=== PATIENT | female | born 1950 | race Caucasian/White ===

== ENCOUNTER 2017-07-01 00:28 | Inpatient (IN) ==
--- NOTE | 2017-07-01 03:24 | Internal Med History&Physical ---
Date of Encounter: 07/01/17 Time of Encounter: 03:16 Assessment and Plan (1) Hyperglycemia due to type 2 diabetes mellitus Current visit: Yes Status: Acute patient diabetes not controlled, positive ketone, required insulin drip will place DKA protocol. Qualifiers: Diabetes mellitus exterminator termite insulin use: unspecified exterminator termite insulin use status Qualified Code(s): E11.65 - Type 2 diabetes mellitus with hyperglycemia (2) Upper gastrointestinal bleed Current visit: No Status: Acute Acute about a positive from emesis, CT shows esophagitis, colitis, will give PPI twice a day consult the GI (3) CKD (chronic kidney disease) stage 3, GFR 30-59 ml/min Current visit: No Status: Chronic (4) GERD (gastroesophageal reflux disease) Current visit: Yes Status: Chronic Continue PPI Qualifiers: Esophagitis presence: with esophagitis Qualified Code(s): K21.0 - Gastro- esophageal reflux disease with esophagitis (5) Hypertension Current visit: No Status: Chronic Qualifiers: Hypertension type: essential hypertension Qualified Code(s): I10 - Essential (primary) hypertension (6) UTI (urinary tract infection) Current visit: No Status: Resolved Continue ceftriaxone pending culture Qualifiers: Urinary tract infection type: acute cystitis Hematuria presence: without hematuria Qualified Code(s): N30.00 - Acute cystitis without hematuria Internal Medicine - H&P: HPI Chief complaint: nausea and vomiting Admitted From: Home Plans for Post Hospital Care: Home History of present illness: Ms. Bond is a 67 year old female who has a history of CK D stages 3, diabetes , hypertension, obesity, presented to [facility] emergency room for acute onset of abdominal pain nausea vomiting. Patient started to have abdominal pain after dinner yesterday pain is located in the lower abdominal 9 out of 10 constant though, associated with severe nausea and vomiting and diarrhea. She has coffee ground emesis and emesis is positive for occult blood. She also has diarrhea 2 times of loose stool. C/o chills and low-grade fever. Denies productive cough no chest pain shortness of breath, she does have urinary discomfort, UA shows positive for infection. She has CK D stages 3 baseline creatinine 1.6 currently elevated to 2.46. Her sugar has been running high over 500, patient is started on insulin drip. She has a CAT abdomen and pelis shows esophagitis and possible colitis and a gallstone She also has 3rd space fluids and a pulmonary edema. Patient is going to be admitted today for #1 upper GI bleeding #2 esophagitis and colitis #3 diabetes with hyperglycemia #4 UTI, #5 ARF ON CKDIII. Past Med Surg Social Fam HX - Past Medical History Medical history: CHF, coronary artery disease, diabetes, GERD, hyperlipidemia, hypertension, renal disease Psychiatric history: no psych history - Past Surgical History Surgical History: angioplasty/stent, , hysterectomy - Social History Smoking Status: Former smoker Smokeless Tobacco Status: No Alcohol use: none Drug use: none - Family History Mother Family Member Ethnicity: Non- Living Status: Hx Family Cardiac Disorders: Yes Hx Family Respiratory Disorders: No Hx Family Cancer: No Hx Family GI Disorders: No Hx Family Endocrine Disorder: Yes (diabetes) Hx Family Neuromuscular Disorders: No Hx Family Neurologic Disorders: No Hx Family HEENT Disorders: No Hx Family Autoimmune Disorders: No Father Family Member Ethnicity: Non- Living Status: Hx Family Cardiac Disorders: Yes (chf) Hx Family Respiratory Disorders: No Hx Family Cancer: No Hx Family GI Disorders: No Hx Family Endocrine Disorder: No Hx Family Neuromuscular Disorders: No Hx Family Neurologic Disorders: No Hx Family HEENT Disorders: No Hx Family Autoimmune Disorders: No Internal Medicine - H&P: Meds Insulin Glargine [Lantus] 20 unit SQ QPM 05/26/16 [History] Pregabalin [Lyrica] 50 mg PO BID #60 capsule 12/06/16 [Rx] Magnesium Oxide [Mag-Ox] 400 mg PO BID #6 tablet 01/16/17 [Rx] Insulin ASPART [Novolog Flexpen] 0 unit SQ TID 03/12/17 [History] Simvastatin [Zocor] 5 mg PO BID 03/12/17 [History] Isosorbide MONOnitrate (24 HR) [Imdur] 60 mg PO DAILY #30 tab.er.24h 03/15/17 [ Rx] Nitroglycerin 0.4 mg SL Q5MIN PRN #1 vial 03/15/17 [Rx] Metoprolol Succinate 100 mg PO DAILY #30 tab.er.24h 04/15/17 [Rx] Furosemide [Lasix] 20 mg PO Q48H #0 04/28/17 [Rx] Metoclopramide [Reglan] 10 mg PO QIDAC #120 tablet 04/28/17 [Rx] Ondansetron ODT [Zofran ODT] 4 mg SL Q4HR PRN #15 tab.rapdis 05/30/17 [Rx] 3 Allergy/AdvReac Type Severity Reaction Status Date / Time Sulfa (Sulfonamide Allergy Hives Verified 06/30/17 20:52 Antibiotics) acetaminophen [From Tylenol] AdvReac Anaphylaxis Verified 06/30/17 20:52 gabapentin [From Neurontin] AdvReac Hallucinati Verified 06/30/17 20:52 ng hydrocodone AdvReac Hives Verified 06/30/17 20:52 ibuprofen AdvReac Hives Verified 06/30/17 20:52 All Systems PM: A 12-system review of systems was performed and is negative for pertinent findings except as documented above in the HPI. - Constitutional Vitals: Temp Pulse Resp BP Pulse Ox 98.5 F 84 14 135/48 94 07/01/17 02:26 07/01/17 02:26 07/01/17 02:26 07/01/17 02:26 07/01/17 02:26 General appearance: Present: cooperative, A&O X 3, pleasant Exam: CONSTITUTIONAL: Patient appears as an age appropriate female well developed, in no acute distress. EYES Clear sclerae, bilateral pupils are equal, reactive to light and accommodation. Extraocular movements are intact RESPIRATORY: No accessory muscle use, bilateral clear to auscultation, no wheezing, no crackles/rales. CARDIOVASCULAR: Regular heart rate, normal S1 and S2, no murmurs GASTROINTESTINAL: bowel sounds present, soft, mild tenderness. No hepatosplenomegaly. No bilateral CVA tenderness MUSCULOSKELETAL: Joints in normal range of motion, no clubbing, no edema, no cyanosis. Bilateral peripheral pulses 2+ LYMPHATIC no lymphadenopathy in neck, groin and axilla bilaterally, no thyromegaly. NEUROLOGIC: CN II to XII are grossly intact, no focal neurological deficit. Deep tendon reflexes 2+ bilaterally. Normal light touch sensation to upper and lower extremity PSYCHIATRIC: Oriented x3, with good insight, mood is euthymic. No hallucinations or delusions. SKIN: Skin warm and dry, no rashes, no open wound.
[2017-07-01] MEDS ORDERED: Insulin LISPRO 300 UNITS/3 ML VIAL SQ PRN (03:31)
[2017-07-01] MEDS ORDERED: Insulin LISPRO 300 UNITS/3 ML VIAL SQ ONE (03:31)
[2017-07-01] MEDS ORDERED: D5% in 0.45% NACL 1,000 ML IVC PRN (03:31)
[2017-07-01] MEDS ORDERED: Insulin Human Regular 100 UNIT in 0.9 % Sodium Chloride 100 ML IVC SCH (03:45)
[2017-07-01] MEDS ORDERED: 0.9 % Sodium Chloride 1,000 ML IVC SCH (03:45)
[2017-07-01] MEDS ORDERED: cefTRIAXone 1,000 MG in Water for inj. (sterile) 10 ML IVPB SCH (04:00)
[2017-07-01] MEDS: Pantoprazole 40 MG VIAL IVP SCH ×2 (04:32→17:01)
[2017-07-01] MEDS: *HR* Promethazine 25 MG/ML VIAL IVP PRN ×3 (04:55→18:45)
[2017-07-01 05:47] LABS: Basophils % 0.1 %; Hematocrit 29.1 % (35.3-44.9); Hemoglobin 9.6 g/dL (11.5-15.4); Immature Granulocytes % 0.4 % (0-4); Lymphocytes # 1.1 K/mcL (0.6-4.6); Lymphocytes % 10.5 %; Mean Corpuscular Hemoglobin 29.8 pg (28.0-33.3); Mean Corpuscular Volume 90.4 fL (83.0-100.0); Mean Platelet Volume 11.6 fL (9.4-12.4); Monocytes # 0.6 K/mcL (0.0-1.3); Neutrophils # 8.8 K/mcL (1.6-8.9); Platelet Count 220 K/mcL (140-400); Red Blood Count 3.22 M/mcL (3.82-4.97); Red Cell Distribution Width 13.2 % (11.5-14.5)
[2017-07-01 05:48] LABS: Calcium 8.5 mg/dL (8.6-10.3); Magnesium 1.8 mg/dL (1.6-2.6); Phosphorous 3.4 mg/dL (2.7-4.5); Potassium 3.1 mEq/L (3.5-5.1)
[2017-07-01] MEDS ORDERED: D5% in Water 1,000 ML IVC PRN (08:38)
[2017-07-01] MEDS ORDERED: Dextrose Gel 15 GM/37.5 ML TUBE PO PRN ×2 (08:38)
[2017-07-01] MEDS ORDERED: *HR* Dextrose 50 % in Water (Syg) 50 ML SYRINGE IVP PRN (08:38)
[2017-07-01 09:19] LABS: Calcium 8.2 mg/dL (8.6-10.3); Potassium 3.6 mEq/L (3.5-5.1)
[2017-07-01] MEDS: MetroNIDAZOLE 500 MG/100 ML 500 MG/100 ML BAG IVPB SCH ×2 (09:25→16:58)
[2017-07-01] MEDS: Pregabalin 50 MG CAPSULE PO SCH ×2 (09:26→20:17)
[2017-07-01] MEDS: Metoprolol XL (24 HR) Succ 50 MG TAB.ER.24H PO SCH (09:26)
[2017-07-01] MEDS ORDERED: Ondansetron 4 MG/2 ML VIAL IVP ONE (09:39)
[2017-07-01] MEDS ORDERED: Ondansetron 4 MG/2 ML VIAL ONE (09:41)
[2017-07-01 09:55] LABS: Prothrombin Time 10.2 Seconds (9.4-12.1)
[2017-07-01 10:10] LABS: Albumin 2.7 g/dL (3.5-5.7); Albumin/Globulin Ratio 0.9 (1.1-2.2); Bilirubin,Indirect 0.2 mg/dL (0.0-1.2); Bilirubin,Total 0.2 mg/dL (0.3-1.0); Globulin 2.9 g/dL (2.4-3.5); Total Protein 5.6 g/dL (6.4-8.9)
--- NOTE | 2017-07-01 10:19 | Internal Med Progress Note ---
<KyawsydneyilyaRoc mccormack - Last Filed: 07/01/17 14:06> Date of Encounter: 07/01/17 Time of Encounter: 09:45 - Assessment and plan (1) Hyperglycemia due to type 2 diabetes mellitus Current Visit: Yes Status: Acute Assessment and plan: Patient's sugar level in the ED was above 500. She was found to have positive ketones with an elevated anion gap of 23. She was subsequently placed on a DKA protocol. Upon review patient's pH was normal upon presentation so unlikely to be DKA. Sugar levels were below 200 today. Insulin was stopped today as a result. Qualifiers: Diabetes mellitus termite treater insulin use: unspecified senior care insulin use status Qualified Code(s): E11.65 - Type 2 diabetes mellitus with hyperglycemia (2) Colitis Current Visit: Yes Status: Acute Assessment and plan: CT of abdomen shows mild thickening of the transverse colon, hepatic flexure and ascending colon. Possibly mild infectious or inflammatory colitis. - Patient on ceftriaxone 1 g IV daily and Flagyl 500 mg IV every 8 hours. (3) Upper gastrointestinal bleed Current Visit: No Status: Acute Assessment and plan: She had coffee ground emesis and emesis was positive for occult blood. CT of the abdomen shows possible esophagitis. Hemoglobin level stable at 9.6. - Protonix 40 mg twice a day. - GI consult ordered. Patient scheduled for EGD today. Patient nothing by mouth. (4) CKD (chronic kidney disease) stage 3, GFR 30-59 ml/min Current Visit: No Status: Chronic Assessment and plan: Creatinine level is decreased from 2.38 down to 2.26. Baseline level from 1.3- 1.8. - Continue IV fluids. (5) UTI (urinary tract infection) Current Visit: No Status: Resolved Assessment and plan: Patient afebrile. Urine culture is pending. - Continue ceftriaxone. Qualifiers: Urinary tract infection type: acute cystitis Hematuria presence: without hematuria Qualified Code(s): N30.00 - Acute cystitis without hematuria (6) Hypertension Current Visit: No Status: Chronic Assessment and plan: Blood pressure 148/61. - Continue metoprolol 100 mg by mouth daily. Qualifiers: Hypertension type: essential hypertension Qualified Code(s): I10 - Essential (primary) hypertension (7) Nausea Current Visit: Yes Status: Acute Assessment and plan: Well-controlled with Zofran. (8) DVT prophylaxis Current Visit: Yes Status: Acute Assessment and plan: SCDs bilaterally. Patient risk of bleeding. - Subjective Interval history: Ms. Bond is a 67 year old female who has a history of CK D stages 3, diabetes , hypertension, obesity, presented to [place] emergency room for acute onset of abdominal pain nausea vomiting. When seen today patient still complaining of nausea and vomiting. She denies any hematemesis. Patient complaining of generalized abdominal pain. She denies any fever, chills, or shortness of breath. Last bowel movement was yesterday. Denies any hematochezia. Denies any dysuria or hematuria. - Constitutional Vitals: Temp Pulse Resp BP Pulse Ox 98.3 F 80 16 148/61 100 07/01/17 05:09 07/01/17 07:00 07/01/17 07:00 07/01/17 07:00 07/01/17 09:37 General appearance: Present: cooperative, A&O X 3, pleasant - ENT ENT exam: Present: mucous membranes moist, normal oropharynx - Respiratory Respiratory exam: Present: CTAB. Absent: accessory muscle use, rales, rhonchi, wheezes - Cardiovascular Cardiovascular exam: Present: RRR, +S1, +S2. Absent: diastolic murmur, gallop, rubs, systolic murmur - GI/Abdominal GI/Abdominal exam: Present: hypoactive bowel sounds, soft, tenderness (All 4 quadrants with palpation. ). Absent: guarding, rebound - Extremities Exam Extremities exam: Present: full ROM, normal capillary refill, warm, radial pulses palpable and symmetrical. Absent: calf tenderness, cyanotic, pedal edema Additional comments: Onychomycosis of the feet. Internal Medicine: Result - Labs CBC & Chem 7: 07/01/17 05:00 07/01/17 12:19 Labs: Short CBC 07/01/17 Range/Units 05:00 WBC 10.6 (4.3-11.1) K/mcL Hgb 9.6 L (11.5-15.4) g/dL Hct 29.1 L (35.3-44.9) % Plt Count 220 (140-400) K/mcL Neutrophils # 8.8 (1.6-8.9) K/mcL BMP 07/01/17 07/01/17 05:00 08:08 Sodium 143 144 Potassium 3.1 L 3.6 Chloride 107 107 Carbon Dioxide 26 25 BUN 37 H 36 H Creatinine 2.38 H 2.26 H Glucose 200 H 196 H Calcium 8.5 L 8.2 L Liver Function 07/01/17 Range/Units 09:26 Total Bilirubin 0.2 L (0.3-1.0) mg/dL Direct Bilirubin 0.0 (0.0-0.2) mg/dL AST 13 (13-39) Units/L ALT 6 L (7-52) Units/L Alkaline Phosphatase 108 H (34-104) Units/L Albumin 2.7 L (3.5-5.7) g/dL - ABG Interpretation ABG results: PT/INR, D-dimer PT 10.2 Seconds (9.4-12.1) 07/01/17 09:26 <Deniz De La Garza - Last Filed: 07/01/17 14:22> Date of Encounter: 07/01/17 - Constitutional Vitals: Temp Pulse Resp BP Pulse Ox 98.5 F 65 16 178/77 100 07/01/17 13:05 07/01/17 13:05 07/01/17 13:05 07/01/17 13:05 07/01/17 12:07 Internal Medicine: Result - Labs CBC & Chem 7: 07/01/17 05:00 07/01/17 12:19 Labs: Short CBC 07/01/17 Range/Units 05:00 WBC 10.6 (4.3-11.1) K/mcL Hgb 9.6 L (11.5-15.4) g/dL Hct 29.1 L (35.3-44.9) % Plt Count 220 (140-400) K/mcL Neutrophils # 8.8 (1.6-8.9) K/mcL BMP 07/01/17 07/01/17 07/01/17 05:00 08:08 12:19 Sodium 143 144 144 Potassium 3.1 L 3.6 3.9 Chloride 107 107 107 Carbon Dioxide 26 25 25 BUN 37 H 36 H 36 H Creatinine 2.38 H 2.26 H 2.23 H Glucose 200 H 196 H 254 H Calcium 8.5 L 8.2 L 8.3 L Liver Function 07/01/17 Range/Units 09:26 Total Bilirubin 0.2 L (0.3-1.0) mg/dL Direct Bilirubin 0.0 (0.0-0.2) mg/dL AST 13 (13-39) Units/L ALT 6 L (7-52) Units/L Alkaline Phosphatase 108 H (34-104) Units/L Albumin 2.7 L (3.5-5.7) g/dL - ABG Interpretation ABG results: PT/INR, D-dimer PT 10.2 Seconds (9.4-12.1) 07/01/17 09:26 - Attending Attestation I examined this patient and my medical decision-making was reviewed with the Resident Physician. I agree with the documented findings, disposition and treatment plan as described except to the extent set forth below. Seen and examined at bedside 67 F, l eye blindness, DM, HTN, CKD III, suspect CHF (patient is on lasix at home) She is admitted and being managed for hyperglycemia due to uncontrolled DM (No DKA, PH is normal on VBG), ROBERTO on CKD, Colitis, suspected UTI, Hypokalemia, hematemesis During evaluation, she continue to have non-bloody, non-bilious vomiting, she denies chest or abdominal pain, she however, does have some diarrhea prior to presentation Physical exam is remarkable for an elderly woman in mild distress, L eye blindness, VSS, chest is CTAB, abdomen is soft and not tender, no pedal edema, she is neurologically intact Labs and Imaging reviewed: Chronic anemia, ROBERTO n CKD, baseline Cr 1.5-1.7, presenting Cr 2.3. A1C 11.4, Mag WNL, LFT noted. Abd CT with esophagitis, colitis, no pyelonephritis Plan: D/C insulin drip, patient is not in DKA, continue sliding scale, FS q4h, EGD today, clear liquid diet after procedure, levemir when patient can tlerate po, continue gentle hydration, add flagyl to current regimen, continue ceftriaxone, follow cultures, continue PPI, resume antihypertensive, hold lasix. Rest of details as in the resident physician's documentation
--- NOTE | 2017-07-01 10:47 | Gastroenterology Consult Note ---
<Monica Kemp - Last Filed: 07/01/17 11:01> Date of Encounter: 07/01/17 Time of Encounter: 09:45 - Assessment and plan (1) Upper gastrointestinal bleed Current Visit: No Status: Acute Assessment and plan: Pt with coffee ground emesis and continued nausea and vomiting. Will proceed with EGD today. Continue antiemetics and PPI. (2) Colitis Current Visit: Yes Status: Acute Assessment and plan: CT shows colonic thickening may be infectious colitis. Will check stool studies for diarrhea. Will need colonoscopy. - Time Spent With Patient Total time spent is greater than 50% in coordination of care (as documented) at patient's floor/unit and/or counseling patient: GI History of Present Illness - Data of Consult Patient: new to practice Consult date: 07/01/17 Requesting Physician: Deniz De La Garza MD - Consult Narrative Reason for consult: nausea and vomiting/coffee ground emesis History of present illness: Ms. Bond is a 67 year old female who has a history of CK D stages 3, diabetes , hypertension, and obesity. She presented to [facility] emergency room for acute onset of abdominal pain nausea vomiting. She states has been ongoinf for 3 days. She had an episode of coffee ground emesis last night. She is actively vomiting clear emesis during evaluation. She reports lower abdominal pain. She had an episode of diarrhea last night and states it comes and goes. She denies any bloody or tarry stools. UA shows positive for infection. She has CK D stages 3 baseline creatinine 1.6 currently elevated to 2.46. Her sugar has been running high over 500, patient is started on insulin drip. CT abdomen and pelvis shows thickening of the distal esophagus and thickening of the colon. She also has 3rd space fluids and a pulmonary edema. Hgb 9.6, K 3.1, Colonoscopy: denies EGD: denies NSAIDS/ASA: denies Anticoagulants: denies Past Med Surg Social Fam HX - Past Medical History Medical history: CHF, coronary artery disease, diabetes, GERD, hyperlipidemia, hypertension, renal disease Psychiatric history: no psych history - Past Surgical History Surgical History: angioplasty/stent, , hysterectomy - Social History Smoking Status: Former smoker Smokeless Tobacco Status: No Alcohol use: none Drug use: none - Family History Mother Family Member Ethnicity: Non- Living Status: Hx Family Cardiac Disorders: Yes Hx Family Respiratory Disorders: No Hx Family Cancer: No Hx Family GI Disorders: No Hx Family Endocrine Disorder: Yes (diabetes) Hx Family Neuromuscular Disorders: No Hx Family Neurologic Disorders: No Hx Family HEENT Disorders: No Hx Family Autoimmune Disorders: No Father Family Member Ethnicity: Non- Living Status: Hx Family Cardiac Disorders: Yes (chf) Hx Family Respiratory Disorders: No Hx Family Cancer: No Hx Family GI Disorders: No Hx Family Endocrine Disorder: No Hx Family Neuromuscular Disorders: No Hx Family Neurologic Disorders: No Hx Family HEENT Disorders: No Hx Family Autoimmune Disorders: No Review of Systems: GI: as per [place] GENERAL: denies fever or chills EYES: denies yellow discoloration ENT: denies pain with swallowing or difficulty swallowing CARDIO: denies chest pain, palpitations RESP: Shortness of breath with exertion : denies change in color of urine NEURO: weakness HEME: Denies any bruising MS: denies joint pain, joint swelling or back pain. DERM: denies rash or itching PSYCH: history of anxiety and depression - Constitutional Vitals: Temp Pulse Resp BP Pulse Ox 98.3 F 80 16 148/61 100 07/01/17 05:09 07/01/17 07:00 07/01/17 07:00 07/01/17 07:00 07/01/17 09:37 Exam: CONSTITUTIONAL:~alert, no acute distress.~HEAD:~normocephalic.~EYES:~no jaundice , left eye drooping noted.~NECK:~no obvious swelling.~HEART:~regular rate and rhythm, no murmurs.~LUNGS:~bilateral good air entry.~ABDOMEN:~non distended, soft, non tander, no masses pulpable, no organomegaly.~RECTAL EXAM:~Deferred.~ EXTREMITIES:~no clubbing, cyanosis or edema.~SKIN:~no stigmata of chronic liver disease.~NEUROLOGIC:~no obvious focal defect.~~~~ Results - Labs CBC & Chem 7: 07/01/17 05:00 07/01/17 08:08 Labs: Last Result Calcium 8.2 mg/dL (8.6-10.3) L 07/01/17 08:08 Entire Visit Hgb 9.6 g/dL (11.5-15.4) L 07/01/17 05:00 Hct 29.1 % (35.3-44.9) L 07/01/17 05:00 PT 10.2 Seconds (9.4-12.1) 07/01/17 09:26 Total Bilirubin 0.2 mg/dL (0.3-1.0) L 07/01/17 09:26 AST 13 Units/L (13-39) 07/01/17 09:26 ALT 6 Units/L (7-52) L 07/01/17 09:26 - ABG ABG results: PT/INR, D-dimer PT 10.2 Seconds (9.4-12.1) 07/01/17 09:26 <Mimi De La Vega - Last Filed: 07/01/17 12:31> Date of Encounter: 07/01/17 Time of Encounter: 12:00 - Time Spent With Patient Total time spent is greater than 50% in coordination of care (as documented) at patient's floor/unit and/or counseling patient: GI History of Present Illness - Data of Consult Requesting Physician: Deniz De La Garza MD - Consult Narrative History of present illness: Ms. Bond is a 67 year old female - Constitutional Vitals: Temp Pulse Resp BP Pulse Ox 98.6 F 105 16 195/93 100 07/01/17 12:21 07/01/17 12:07 07/01/17 12:07 07/01/17 12:07 07/01/17 12:07 Results - Labs CBC & Chem 7: 07/01/17 05:00 07/01/17 08:08 Labs: Last Result Calcium 8.2 mg/dL (8.6-10.3) L 07/01/17 08:08 Entire Visit Hgb 9.6 g/dL (11.5-15.4) L 07/01/17 05:00 Hct 29.1 % (35.3-44.9) L 07/01/17 05:00 PT 10.2 Seconds (9.4-12.1) 07/01/17 09:26 Total Bilirubin 0.2 mg/dL (0.3-1.0) L 07/01/17 09:26 AST 13 Units/L (13-39) 07/01/17 09:26 ALT 6 Units/L (7-52) L 07/01/17 09:26 - ABG ABG results: PT/INR, D-dimer PT 10.2 Seconds (9.4-12.1) 07/01/17 09:26 - Attending Attestation I have personally performed a face to face evaluation on this patient. I have reviewed and agree with the care plan. History and Exam by me shows: Patient with coffee-ground emesis and abnormal CT of the esophagus. Recommendation EGD to rule out esophagitis and other etiology
[2017-07-01] MEDS: Insulin LISPRO 300 UNITS/3 ML VIAL SQ SCH ×3 (12:16→20:19)
[2017-07-01 12:28] LABS: Estimated Average Glucose 280 mg/dl; Hemoglobin A1C 11.4 %
[2017-07-01] MEDS ORDERED: *HR* FentaNYL (PF) 100 MCG/2 ML VIAL IVP ONE ×2 (12:40)
[2017-07-01] MEDS ORDERED: *HR* Midazolam HCl 2 MG/2 ML VIAL IVP ONE ×2 (12:40)
[2017-07-01] MEDS ORDERED: Simethicone 40 MG/0.6 ML MLS IR ONE ×2 (12:40)
[2017-07-01] MEDS ORDERED: Tetracaine/Benzocaine/Butamben 200MG/SPRAY (100SPY/BOT) MM ONE ×2 (12:40)
--- NOTE | 2017-07-01 12:42 | Pre-Sedation Evaluation ---
Pre-sedation evaluation - Pre-sedation checklist Date of procedure: 07/01/17 Procedure: RIGHT FOOT SURGERY Recent Vitals: Last Vital Signs Temp 98.6 F 07/01/17 12:21 Pulse 105 07/01/17 12:07 Resp 16 07/01/17 12:07 BP 195/93 07/01/17 12:07 Pulse Ox 100 07/01/17 12:07 H&P (including ROS) documented in medical record: Yes Previous reaction to sedatives/anesthetics: No Dietary Status: NPO after Midnight ASA Classification *see protocol: CLASS III-Severe systemic disease Plan of Care: Pt appropriate candidate for procedure/moderate/conscious sedation , Risks/benefits of procedure/sedation discussed w/ patient/family
[2017-07-01] MEDS ORDERED: *HR* FentaNYL (PF) 100 MCG/2 ML VIAL ONE (12:46)
[2017-07-01] MEDS ORDERED: *HR* Midazolam HCl 5 MG/5 ML VIAL IVP ONE (12:46)
[2017-07-01 12:51] LABS: Calcium 8.3 mg/dL (8.6-10.3); Potassium 3.9 mEq/L (3.5-5.1)
[2017-07-01] MEDS: Isosorbide MONOnitrate (24 HR) 60 MG TAB.ER.24H PO SCH (15:17)
[2017-07-01 16:20] LABS: Calcium 8.2 mg/dL (8.6-10.3); Potassium 3.9 mEq/L (3.5-5.1)
[2017-07-01] MEDS: Insulin DETEMIR 100 UNIT/ML X5UNITS SQ SCH (20:17)
[2017-07-01 21:28] LABS: Calcium 8.1 mg/dL (8.6-10.3); Potassium 3.7 mEq/L (3.5-5.1)
[2017-07-02] MEDS: Insulin LISPRO 300 UNITS/3 ML VIAL SQ SCH ×7 (00:02→23:40)
[2017-07-02 00:42] LABS: Potassium 3.5 mEq/L (3.5-5.1)
[2017-07-02] MEDS: MetroNIDAZOLE 500 MG/100 ML 500 MG/100 ML BAG IVPB SCH ×4 (01:54→23:57)
[2017-07-02 03:59] LABS: Basophils % 0.1 %; Eosinophils % 0.2 %; Hematocrit 26.1 % (35.3-44.9); Hemoglobin 8.5 g/dL (11.5-15.4); Immature Granulocytes % 0.5 % (0-4); Lymphocytes # 1.9 K/mcL (0.6-4.6); Lymphocytes % 17.9 %; Mean Corpuscular HGB Conc 32.6 g/dL (31.6-35.5); Mean Corpuscular Hemoglobin 30.2 pg (28.0-33.3); Mean Corpuscular Volume 92.9 fL (83.0-100.0); Mean Platelet Volume 10.7 fL (9.4-12.4); Monocytes # 0.6 K/mcL (0.0-1.3); Monocytes % 5.3 %; Neutrophils # 7.9 K/mcL (1.6-8.9); Platelet Count 183 K/mcL (140-400); Red Blood Count 2.81 M/mcL (3.82-4.97); Red Cell Distribution Width 13.6 % (11.5-14.5)
[2017-07-02] MEDS: cefTRIAXone 1,000 MG in Water for inj. (sterile) 20 ML 10 ML IVPB SCH (04:20)
[2017-07-02 04:23] LABS: Potassium 3.2 mEq/L (3.5-5.1)
[2017-07-02] MEDS: Pantoprazole 40 MG VIAL IVP SCH ×2 (06:33→16:56)
[2017-07-02] MEDS: Pregabalin 50 MG CAPSULE PO SCH ×2 (08:29→20:33)
[2017-07-02] MEDS: Isosorbide MONOnitrate (24 HR) 60 MG TAB.ER.24H PO SCH (08:29)
[2017-07-02] MEDS: Metoprolol XL (24 HR) Succ 50 MG TAB.ER.24H PO SCH (08:29)
--- NOTE | 2017-07-02 17:57 | Internal Med Progress Note ---
Date of Encounter: 07/02/17 Time of Encounter: 13:00 - Assessment and plan (1) Colitis Current Visit: Yes Status: Acute Assessment and plan: continue flagyl and ceftriaxone (2) DVT prophylaxis Current Visit: Yes Status: Acute Assessment and plan: heparin SQ (3) Hyperglycemia due to type 2 diabetes mellitus Current Visit: Yes Status: Acute Assessment and plan: improved continue levemir and sliding scale FS ACHS Qualifiers: Diabetes mellitus detention insulin use: unspecified detention insulin use status Qualified Code(s): E11.65 - Type 2 diabetes mellitus with hyperglycemia (4) Nausea Current Visit: Yes Status: Acute Assessment and plan: improving, continue current trt (5) GERD (gastroesophageal reflux disease) Current Visit: Yes Status: Chronic Qualifiers: Esophagitis presence: with esophagitis Qualified Code(s): K21.0 - Gastro- esophageal reflux disease with esophagitis (6) Hyperlipidemia Current Visit: No Status: Chronic Assessment and plan: chronic, stable, continue home meds Qualifiers: Hyperlipidemia type: unspecified Qualified Code(s): E78.5 - Hyperlipidemia , unspecified (7) Anemia Current Visit: No Status: Chronic Assessment and plan: chronic, stable Qualifiers: Anemia type: unspecified type Qualified Code(s): D64.9 - Anemia, unspecified (8) CKD (chronic kidney disease) stage 3, GFR 30-59 ml/min Current Visit: Yes Status: Chronic Assessment and plan: chronic, stable (9) Coronary artery disease Current Visit: No Status: Chronic Assessment and plan: continue home meds Qualifiers: Coronary Disease-Associated Artery/Lesion type: [place] artery [place] vs. transplanted heart: [place] heart Associated angina: without angina Qualified Code(s): I25.10 - Atherosclerotic heart disease of [place] coronary artery without angina pectoris (10) Hypertension Current Visit: Yes Status: Chronic Assessment and plan: controlled on current regmimen Qualifiers: Hypertension type: essential hypertension Qualified Code(s): I10 - Essential (primary) hypertension (11) UTI (urinary tract infection) Current Visit: Yes Status: Suspected Assessment and plan: suspected, continue ceftrixone, follow culture, discontinue rios Qualifiers: Urinary tract infection type: acute cystitis Hematuria presence: with hematuria Qualified Code(s): N30.01 - Acute cystitis with hematuria - Subjective Interval history: seen and evaluated at bedside nausea and vomiting has improved EGD showed esophagitis and gastritis, biopsied tolerating clear liquid diet we will replace her potassium and advance her diet - Constitutional Vitals: Temp Pulse Resp BP Pulse Ox 98.3 F 62 18 118/55 94 07/02/17 14:55 07/02/17 14:55 07/02/17 14:55 07/02/17 14:55 07/02/17 14:55 General appearance: Present: cooperative, A&O X 3, pleasant - Head Head exam: Present: atraumatic, normocephalic - Eye Eye exam: Present: PERRL, conjuntiva pink, sclera anicteric Pupils: Present: PERRL - Neck Neck exam general surgery: Present: supple, trachea midline. Absent: lymphadenopathy - Respiratory Respiratory exam: Present: CTAB. Absent: accessory muscle use, rales, rhonchi, wheezes - Cardiovascular Cardiovascular exam: Present: RRR, +S1, +S2. Absent: diastolic murmur, gallop, rubs, systolic murmur - GI/Abdominal GI/Abdominal exam: Present: normal bowel sounds, soft, no peritoneal signs. Absent: distended, tenderness - Extremities Exam Extremities exam: Present: warm, radial pulses palpable and symmetrical. Absent : calf tenderness, cyanotic, pedal edema - Neurological Exam Neurological exam: Present: CN II-XII intact, oriented X3, no focal deficits. Absent: pronater drift, facial droop, speech deficit - Skin Skin exam: Present: dry, intact Internal Medicine: Result - Labs CBC & Chem 7: 07/02/17 03:47 07/02/17 03:47 Labs: Short CBC 07/02/17 Range/Units 03:47 WBC 10.3 (4.3-11.1) K/mcL Hgb 8.5 L (11.5-15.4) g/dL Hct 26.1 L (35.3-44.9) % Plt Count 183 (140-400) K/mcL Neutrophils # 7.9 (1.6-8.9) K/mcL BMP 07/01/17 07/02/17 07/02/17 20:08 00:09 03:47 Sodium 145 141 142 Potassium 3.7 3.5 3.2 L Chloride 109 H 107 109 H Carbon Dioxide 26 27 28 BUN 38 H 38 H 40 H Creatinine 2.48 H 2.47 H 2.53 H Glucose 186 H 107 H 93 Calcium 8.1 L 8.0 L 8.0 L - ABG Interpretation ABG results: PT/INR, D-dimer PT 10.2 Seconds (9.4-12.1) 07/01/17 09:26 - VTE Documentation of Mechanical Device: Intermittent pneumatic compression device
[2017-07-02] MEDS: Insulin DETEMIR 100 UNIT/ML X5UNITS SQ SCH (20:33)
[2017-07-03] MEDS: 0.9 % Sodium Chloride 1,000 ML IVC SCH ×2 (00:57→13:14)
[2017-07-03] MEDS: cefTRIAXone 1,000 MG in Water for inj. (sterile) 20 ML 10 ML IVPB SCH (03:50)
[2017-07-03] MEDS: Insulin LISPRO 300 UNITS/3 ML VIAL SQ SCH ×6 (03:50→23:37)
[2017-07-03] MEDS: Pantoprazole 40 MG VIAL IVP SCH ×2 (05:21→16:54)
[2017-07-03] MEDS: Pregabalin 50 MG CAPSULE PO SCH ×2 (07:31→21:42)
[2017-07-03] MEDS: Metoprolol XL (24 HR) Succ 50 MG TAB.ER.24H PO SCH (07:31)
[2017-07-03] MEDS: Isosorbide MONOnitrate (24 HR) 60 MG TAB.ER.24H PO SCH (07:31)
[2017-07-03] MEDS: MetroNIDAZOLE 500 MG/100 ML 500 MG/100 ML BAG IVPB SCH ×2 (07:31→16:54)
--- NOTE | 2017-07-03 11:28 | Internal Med Progress Note ---
<Nicola Zhang - Last Filed: 07/03/17 11:25> Date of Encounter: 07/03/17 Time of Encounter: 11:25 - Assessment and plan (1) Colitis Current Visit: Yes Status: Acute Assessment and plan: CT abdomen pelvis shows mild wall thickening of the transverse colon, hepatic flexure and ascending colon. Continue IV fluids. Continue ceftriaxone and Flagyl. Patient has continued mild abdominal pain below the umbilicus. (2) Nausea Current Visit: Yes Status: Acute Assessment and plan: Patient continues to have nausea and is not tolerating her clear liquid diet. She has uncontrolled diabetes with peripheral neuropathy. Likely she may have gastroparesis as well. We will start patient on Reglan. Zofran when necessary for nausea. Advance diet as tolerated. (3) UTI (urinary tract infection) Current Visit: Yes Status: Acute Assessment and plan: Urinalysis positive for leukocyte esterase, bacteria. Urine culture pending. Patient on ceftriaxone. Patient has a [place] Paz in for strict I's and O's and urinary retention. Qualifiers: Urinary tract infection type: acute cystitis Hematuria presence: without hematuria Qualified Code(s): N30.00 - Acute cystitis without hematuria (4) Anemia Current Visit: Yes Status: Chronic Assessment and plan: Patient presented with hemoglobin of 10.4 which is now 8.5. EGD was negative for acute upper GI bleed. EGD showed gastritis, and a mucosal nodule was found. Continue PPI twice a day and Carafate 3 times a day. Patient also need a colonoscopy outpatient as she has never had one. Qualifiers: Anemia type: unspecified type Qualified Code(s): D64.9 - Anemia, unspecified (5) Uncontrolled diabetes mellitus Current Visit: Yes Status: Acute Assessment and plan: Patient's hemoglobin A1c is 11.4. Currently she is on insulin regiment that is controlling her hyperglycemia. She also is not taking very much by mouth due to nausea. Continue to monitor. Qualifiers: Diabetes mellitus type: type 2 Diabetes mellitus long term care administrator insulin use: with long term care administrator use Diabetes mellitus complication status: with kidney complications Diabetes mellitus complication detail: with chronic kidney disease Chronic kidney disease stage: stage 3 (moderate) Qualified Code(s): E11.22 - Type 2 diabetes mellitus with diabetic chronic kidney disease; E11.65 - Type 2 diabetes mellitus with hyperglycemia; Z79.4 - USP (current) use of insulin; E11.65 - Type 2 diabetes mellitus with hyperglycemia; E11.65 - Type 2 diabetes mellitus with hyperglycemia; E11.65 - Type 2 diabetes mellitus with hyperglycemia; N18.3 - Chronic kidney disease, stage 3 (moderate); N18.3 - Chronic kidney disease, stage 3 (moderate); Z79.4 - emt intermediate (current) use of insulin; Z79.4 - emt intermediate (current) use of insulin; Z79.4 - emt intermediate (current ) use of insulin (6) CKD (chronic kidney disease) stage 3, GFR 30-59 ml/min Current Visit: Yes Status: Chronic Assessment and plan: Acute on chronic kidney injury. Likely secondary to dehydration from nausea vomiting. Continue IV fluids. Repeat BMP. (7) Coronary artery disease Current Visit: Yes Status: Chronic Assessment and plan: Stable. Continue home medications. Qualifiers: Coronary Disease-Associated Artery/Lesion type: [place] artery [place] vs. transplanted heart: [place] heart Associated angina: without angina Qualified Code(s): I25.10 - Atherosclerotic heart disease of [place] coronary artery without angina pectoris (8) DVT prophylaxis Current Visit: Yes Status: Acute Assessment and plan: Heparin subcutaneous. - Subjective Interval history: Patient reports she continues to have nausea with a clear liquid diet. She reports abdominal pain below her belly button that aching. She denies headache , shortness of breath, chest pain. She reports bilateral lower extremity numbness and tingling. - Constitutional Vitals: Temp Pulse Resp BP Pulse Ox 98.0 F 57 16 137/61 96 07/03/17 07:29 07/03/17 07:40 07/03/17 07:29 07/03/17 07:29 07/03/17 07:29 General appearance: Present: cooperative, A&O X 3, pleasant - Other Additional findings: General: without distress Heart: Regular rate and rhythm with no murmur Lungs: Clear to auscultation bilaterally Abdomen: Soft and tender below umbillicus, +BS, non distended Skin: warm and dry Extremities: Absent pedal edema, Neuro: Alert and oriented 3 Vascular: Pedal and radial pulses 2 out of 4 Internal Medicine: Result - Labs CBC & Chem 7: 07/02/17 03:47 07/02/17 03:47 - ABG Interpretation ABG results: PT/INR, D-dimer PT 10.2 Seconds (9.4-12.1) 07/01/17 09:26 - VTE Documentation of Mechanical Device: Intermittent pneumatic compression device <[email or web address] - Last Filed: 07/03/17 14:17> Date of Encounter: 07/03/17 Time of Encounter: 11:20 - Assessment and plan (1) Colitis Current Visit: Yes Status: Acute (2) Gastritis Current Visit: Yes Status: Acute Qualifiers: Gastritis type: unspecified gastritis Chronicity: acute Gastritis bleeding: without bleeding Qualified Code(s): K29.00 - Acute gastritis without bleeding (3) Anemia Current Visit: Yes Status: Chronic Qualifiers: Anemia type: unspecified type Qualified Code(s): D64.9 - Anemia, unspecified (4) CKD (chronic kidney disease) stage 3, GFR 30-59 ml/min Current Visit: Yes Status: Chronic (5) Coronary artery disease Current Visit: Yes Status: Chronic Qualifiers: Coronary Disease-Associated Artery/Lesion type: [place] artery [place] vs. transplanted heart: [place] heart Associated angina: without angina Qualified Code(s): I25.10 - Atherosclerotic heart disease of [place] coronary artery without angina pectoris (6) GERD (gastroesophageal reflux disease) Current Visit: Yes Status: Chronic Qualifiers: Esophagitis presence: with esophagitis Qualified Code(s): K21.0 - Gastro- esophageal reflux disease with esophagitis (7) Hyperglycemia due to type 2 diabetes mellitus Current Visit: Yes Status: Acute Qualifiers: Diabetes mellitus long term care administrator insulin use: unspecified long term care administrator insulin use status Qualified Code(s): E11.65 - Type 2 diabetes mellitus with hyperglycemia (8) Hypertension Current Visit: Yes Status: Chronic Qualifiers: Hypertension type: essential hypertension Qualified Code(s): I10 - Essential (primary) hypertension (9) UTI (urinary tract infection) Current Visit: Yes Status: Acute Qualifiers: Urinary tract infection type: acute cystitis Hematuria presence: without hematuria Qualified Code(s): N30.00 - Acute cystitis without hematuria (10) DVT prophylaxis Current Visit: Yes Status: Acute - Constitutional Vitals: Temp Pulse Resp BP Pulse Ox 99.0 F 63 16 133/71 96 07/03/17 11:28 07/03/17 11:28 07/03/17 11:28 07/03/17 11:28 07/03/17 11:28 Internal Medicine: Result - Labs CBC & Chem 7: 07/03/17 13:17 07/03/17 12:17 Labs: Short CBC 07/03/17 Range/Units 13:17 WBC 7.4 (4.3-11.1) K/mcL Hgb 8.4 L (11.5-15.4) g/dL Hct 26.6 L (35.3-44.9) % Plt Count 134 L (140-400) K/mcL Neutrophils # 5.2 (1.6-8.9) K/mcL BMP 07/03/17 12:17 Sodium 139 Potassium 4.3 Chloride 110 H Carbon Dioxide 24 BUN 47 H Creatinine 2.99 H Glucose 161 H Calcium 7.4 L - ABG Interpretation ABG results: PT/INR, D-dimer PT 10.2 Seconds (9.4-12.1) 07/01/17 09:26 - Attending Attestation I examined this patient and my medical decision-making was reviewed with the Resident Physician, Nicola Zhang. I agree with the documented findings, disposition and treatment plan as described with any changes as documented below. Patient is awake and alert. Doing better today. Complains of right upper extremity paresthesias. Tolerating oral diet. Does report nausea and mild abdominal discomfort. No fever or chills reported overnight. No diarrhea. No hematemesis or melena. Continue IV hydration. Change fluids to lactated Ringer 's. Monitor renal function closely. Continue current antibiotics. Antiemetics as needed. Patient most likely has diabetic gastroparesis and diabetic neuropathy. Patient is on Lyrica. Will add Reglan for gastroparesis and nausea. Upper GI endoscopy yesterday showed reflux esophagitis and gastritis. Continue PPI and Carafate. Blood sugars are fairly controlled. Continue current insulin regimen. Moderate risk for complications. Renal function worsening. Will get renal ultrasound. Consider nephrology consult if creatinine continues to rise.
[2017-07-03] MEDS: *HR* Promethazine 25 MG/ML VIAL IVP PRN (11:43)
[2017-07-03] MEDS: Ondansetron 4 MG/2 ML VIAL IVP SCH ×3 (11:49→23:35)
[2017-07-03] MEDS: Metoclopramide 10 MG/10 ML UD.LIQ PO SCH ×3 (13:11→23:36)
[2017-07-03 13:36] LABS: Basophils % 0.1 %; Eosinophils # 0.2 K/mcL (0.0-0.6); Eosinophils % 3.1 %; Hematocrit 26.6 % (35.3-44.9); Hemoglobin 8.4 g/dL (11.5-15.4); Immature Granulocytes % 1.1 % (0-4); Lymphocytes # 1.4 K/mcL (0.6-4.6); Lymphocytes % 18.5 %; Mean Corpuscular HGB Conc 31.6 g/dL (31.6-35.5); Mean Corpuscular Hemoglobin 30.2 pg (28.0-33.3); Mean Corpuscular Volume 95.7 fL (83.0-100.0); Mean Platelet Volume 12.1 fL (9.4-12.4); Monocytes # 0.4 K/mcL (0.0-1.3); Neutrophils # 5.2 K/mcL (1.6-8.9); Nucleated Red Blood Cells 0.4 /100 WBC (0); Platelet Count 134 K/mcL (140-400); Red Blood Count 2.78 M/mcL (3.82-4.97); Red Cell Distribution Width 13.3 % (11.5-14.5); Segmented Neutrophils % 71.2 %
[2017-07-03 13:44] LABS: Calcium 7.4 mg/dL (8.6-10.3); Potassium 4.3 mEq/L (3.5-5.1)
[2017-07-03] MEDS: Ringers Solution, Lactated 1,000 ML IVC SCH (14:26)
[2017-07-03] MEDS: Insulin DETEMIR 100 UNIT/ML X5UNITS SQ SCH (21:43)
[2017-07-04] MEDS: MetroNIDAZOLE 500 MG/100 ML 500 MG/100 ML BAG IVPB SCH ×3 (00:32→17:28)
[2017-07-04] MEDS: cefTRIAXone 1,000 MG in Water for inj. (sterile) 20 ML 10 ML IVPB SCH (03:57)
[2017-07-04 04:18] LABS: Basophils % 0.4 %; Eosinophils # 0.2 K/mcL (0.0-0.6); Eosinophils % 3.9 %; Hematocrit 24.9 % (35.3-44.9); Hemoglobin 7.7 g/dL (11.5-15.4); Immature Granulocytes % 0.4 % (0-4); Lymphocytes # 1.5 K/mcL (0.6-4.6); Lymphocytes % 27.5 %; Mean Corpuscular HGB Conc 30.9 g/dL (31.6-35.5); Mean Corpuscular Hemoglobin 29.5 pg (28.0-33.3); Mean Corpuscular Volume 95.4 fL (83.0-100.0); Mean Platelet Volume 12.3 fL (9.4-12.4); Monocytes # 0.4 K/mcL (0.0-1.3); Monocytes % 7.7 %; Neutrophils # 3.4 K/mcL (1.6-8.9); Platelet Count 134 K/mcL (140-400); Red Blood Count 2.61 M/mcL (3.82-4.97); Red Cell Distribution Width 13.2 % (11.5-14.5); Segmented Neutrophils % 60.1 %
[2017-07-04] MEDS: Insulin LISPRO 300 UNITS/3 ML VIAL SQ SCH ×5 (04:20→20:45)
[2017-07-04 04:42] LABS: Calcium 7.1 mg/dL (8.6-10.3); Potassium 3.8 mEq/L (3.5-5.1)
[2017-07-04] MEDS: Ringers Solution, Lactated 1,000 ML IVC SCH ×2 (05:42→20:53)
[2017-07-04] MEDS: Pantoprazole 40 MG VIAL IVP SCH ×2 (05:43→17:28)
[2017-07-04] MEDS: Metoclopramide 10 MG/10 ML UD.LIQ PO SCH ×3 (05:45→17:28)
[2017-07-04] MEDS: Ondansetron 4 MG/2 ML VIAL IVP SCH ×2 (05:47→11:08)
[2017-07-04] MEDS: Pregabalin 50 MG CAPSULE PO SCH ×2 (08:15→20:46)
[2017-07-04] MEDS: Isosorbide MONOnitrate (24 HR) 60 MG TAB.ER.24H PO SCH (08:15)
[2017-07-04] MEDS: Metoprolol XL (24 HR) Succ 50 MG TAB.ER.24H PO SCH (08:15)
--- NOTE | 2017-07-04 10:05 | Internal Med Progress Note ---
<Nicola Zhang - Last Filed: 07/04/17 10:03> Date of Encounter: 07/04/17 Time of Encounter: 10:04 - Assessment and plan (1) Colitis Current Visit: Yes Status: Acute Assessment and plan: CT abdomen pelvis shows mild wall thickening of the transverse colon, hepatic flexure and ascending colon. Continue IV fluids. Continue ceftriaxone and Flagyl. Patient has continued mild abdominal pain below the umbilicus. Awaiting GI panel (2) Nausea Current Visit: Yes Status: Acute Assessment and plan: Improved. can tolerate regular diet continue zofran and reglan (3) UTI (urinary tract infection) Current Visit: Yes Status: Acute Assessment and plan: Urinalysis positive for leukocyte esterase, bacteria. Urine culture still pending. Patient on ceftriaxone. Patient has a [place] in for strict I's and O's and urinary retention. Qualifiers: Urinary tract infection type: acute cystitis Hematuria presence: without hematuria Qualified Code(s): N30.00 - Acute cystitis without hematuria (4) Anemia Current Visit: Yes Status: Chronic Assessment and plan: Patient presented with hemoglobin of 10.4 now 7.7 GI called today for possible colonoscopy which patient has never had. EGD was negative for acute upper GI bleed. EGD showed gastritis, and a mucosal nodule was found. Continue PPI twice a day and Carafate 3 times a day. Qualifiers: Anemia type: unspecified type Qualified Code(s): D64.9 - Anemia, unspecified (5) Uncontrolled diabetes mellitus Current Visit: Yes Status: Acute Assessment and plan: Patient's hemoglobin A1c is 11.4. Currently she is on insulin regiment that is controlling her hyperglycemia. Continue to monitor. Qualifiers: Diabetes mellitus type: type 2 Diabetes mellitus termite inspector insulin use: with long-term use Diabetes mellitus complication status: with kidney complications Diabetes mellitus complication detail: with chronic kidney disease Chronic kidney disease stage: stage 3 (moderate) Qualified Code(s): E11.22 - Type 2 diabetes mellitus with diabetic chronic kidney disease; E11.65 - Type 2 diabetes mellitus with hyperglycemia; Z79.4 - continuous churn buttermaker (current) use of insulin; E11.65 - Type 2 diabetes mellitus with hyperglycemia; E11.65 - Type 2 diabetes mellitus with hyperglycemia; E11.65 - Type 2 diabetes mellitus with hyperglycemia; N18.3 - Chronic kidney disease, stage 3 (moderate); N18.3 - Chronic kidney disease, stage 3 (moderate); Z79.4 - continuous churn buttermaker (current) use of insulin; Z79.4 - jail (current) use of insulin; Z79.4 - jail (current ) use of insulin (6) CKD (chronic kidney disease) stage 3, GFR 30-59 ml/min Current Visit: Yes Status: Chronic Assessment and plan: Acute on chronic kidney injury. improving Likely secondary to dehydration from nausea vomiting. Continue IV fluids. Repeat BMP. (7) Coronary artery disease Current Visit: Yes Status: Chronic Assessment and plan: Stable. Continue home medications. Qualifiers: Coronary Disease-Associated Artery/Lesion type: [place] artery [place] vs. transplanted heart: [place] heart Associated angina: without angina Qualified Code(s): I25.10 - Atherosclerotic heart disease of [place] coronary artery without angina pectoris (8) DVT prophylaxis Current Visit: Yes Status: Acute Assessment and plan: Heparin subcutaneous. - Subjective Interval history: Patient is tolerating a regular diet. She reports her abdominal pain has improved. She has mild nausea. She denies headache, shortness of breath, chest pain. - Constitutional Vitals: Temp Pulse Resp BP Pulse Ox 98.6 F 62 15 132/73 95 07/04/17 06:50 07/04/17 08:39 07/04/17 06:50 07/04/17 06:50 07/04/17 06:50 General appearance: Present: cooperative, A&O X 3, pleasant - Other Additional findings: General: without distress Heart: Regular rate and rhythm with no murmur Lungs: Clear to auscultation bilaterally Abdomen: Soft and nontender, +BS, non distended Skin: warm and dry Extremities: Absent pedal edema, Neuro: Alert and oriented 3 Vascular: Pedal and radial pulses 2 out of 4 Internal Medicine: Result - Labs CBC & Chem 7: 07/04/17 03:31 07/04/17 03:31 Labs: Short CBC 07/03/17 07/04/17 Range/Units 13:17 03:31 WBC 7.4 5.6 (4.3-11.1) K/mcL Hgb 8.4 L 7.7 L (11.5-15.4) g/dL Hct 26.6 L 24.9 L (35.3-44.9) % Plt Count 134 L 134 L (140-400) K/mcL Neutrophils # 5.2 3.4 (1.6-8.9) K/mcL BMP 07/03/17 07/04/17 12:17 03:31 Sodium 139 140 Potassium 4.3 3.8 Chloride 110 H 108 H Carbon Dioxide 24 24 BUN 47 H 46 H Creatinine 2.99 H 2.77 H Glucose 161 H 173 H Calcium 7.4 L 7.1 L - ABG Interpretation ABG results: PT/INR, D-dimer PT 10.2 Seconds (9.4-12.1) 07/01/17 09:26 - VTE Documentation of Mechanical Device: Intermittent pneumatic compression device Consult Discharge Plan - Plan Referrals: Rose Esteban DATA ENTRY COORDINATOR [Advanced Practice Nurse] - 07/13/17 1:30 pm <Daniel Flores - Last Filed: 07/04/17 14:04> Date of Encounter: 07/04/17 - Constitutional Vitals: Temp Pulse Resp BP Pulse Ox 99.4 F 63 16 130/53 94 07/04/17 11:01 07/04/17 11:22 07/04/17 11:01 07/04/17 11:01 07/04/17 11:01 Internal Medicine: Result - Labs CBC & Chem 7: 07/04/17 03:31 07/04/17 03:31 Labs: Short CBC 07/04/17 Range/Units 03:31 WBC 5.6 (4.3-11.1) K/mcL Hgb 7.7 L (11.5-15.4) g/dL Hct 24.9 L (35.3-44.9) % Plt Count 134 L (140-400) K/mcL Neutrophils # 3.4 (1.6-8.9) K/mcL [facility] 07/04/17 03:31 Sodium 140 Potassium 3.8 Chloride 108 H Carbon Dioxide 24 BUN 46 H Creatinine 2.77 H Glucose 173 H Calcium 7.1 L - ABG Interpretation ABG results: PT/INR, D-dimer PT 10.2 Seconds (9.4-12.1) 07/01/17 09:26 - Attending Attestation Dehydration secondary to acute colitis Continue Rocephin and Flagyl Acute blood lows anemia likely secondary to acute esophagitis and gastritis, consider other possible sources GI recommendations appreciated, continue Protonix IV and IV fluids Consider transfusions Acute on chronic renal failure/chronic kidney disease stage 3/4 I examined this patient and my medical decision-making was reviewed with the Resident Physician. I agree with the documented findings, disposition and treatment plan as described except to the extent set forth below.
[2017-07-04] MEDS: Insulin DETEMIR 100 UNIT/ML X5UNITS SQ SCH (20:53)
[2017-07-05] MEDS: MetroNIDAZOLE 500 MG/100 ML 500 MG/100 ML BAG IVPB SCH ×3 (00:20→16:35)
[2017-07-05] MEDS: Metoclopramide 10 MG/10 ML UD.LIQ PO SCH ×5 (00:21→23:34)
[2017-07-05] MEDS: Insulin LISPRO 300 UNITS/3 ML VIAL SQ SCH ×7 (00:26→23:38)
[2017-07-05] MEDS: Ondansetron 4 MG/2 ML VIAL IVP PRN (01:25)
[2017-07-05] MEDS: *HR* Dextrose 50 % in Water (Syg) 50 ML SYRINGE IVP PRN ×2 (04:32→23:35)
[2017-07-05] MEDS: cefTRIAXone 1,000 MG in Water for inj. (sterile) 20 ML 10 ML IVPB SCH (04:32)
[2017-07-05 05:40] LABS: Basophils % 0.3 %; Eosinophils # 0.2 K/mcL (0.0-0.6); Eosinophils % 3.2 %; Hematocrit 26.4 % (35.3-44.9); Hemoglobin 8.3 g/dL (11.5-15.4); Immature Granulocytes % 0.5 % (0-4); Lymphocytes # 1.4 K/mcL (0.6-4.6); Lymphocytes % 21.3 %; Mean Corpuscular HGB Conc 31.4 g/dL (31.6-35.5); Mean Corpuscular Volume 95.3 fL (83.0-100.0); Mean Platelet Volume 12.2 fL (9.4-12.4); Monocytes # 0.5 K/mcL (0.0-1.3); Monocytes % 7.7 %; Neutrophils # 4.4 K/mcL (1.6-8.9); Platelet Count 156 K/mcL (140-400); Red Blood Count 2.77 M/mcL (3.82-4.97)
[2017-07-05] MEDS: Pantoprazole 40 MG VIAL IVP SCH (05:46)
[2017-07-05 05:55] LABS: Calcium 7.6 mg/dL (8.6-10.3); Potassium 3.9 mEq/L (3.5-5.1)
[2017-07-05] MEDS: Isosorbide MONOnitrate (24 HR) 60 MG TAB.ER.24H PO SCH (09:12)
[2017-07-05] MEDS: Pregabalin 50 MG CAPSULE PO SCH ×2 (09:12→21:04)
[2017-07-05] MEDS: Metoprolol XL (24 HR) Succ 50 MG TAB.ER.24H PO SCH (09:12)
--- NOTE | 2017-07-05 10:29 | Internal Med Progress Note ---
<Nicola Zhang - Last Filed: 07/05/17 10:25> Date of Encounter: 07/05/17 Time of Encounter: 10:26 - Assessment and plan (1) Colitis Current Visit: Yes Status: Acute Assessment and plan: CT abdomen pelvis shows mild wall thickening of the transverse colon, hepatic flexure and ascending colon. Continue IV fluids. Continue ceftriaxone day 5 and Flagyl day 5 Patient has continued mild abdominal pain below the umbilicus. (2) Nausea Current Visit: Yes Status: Resolved Assessment and plan: Improved. Likely secondary to his gastroparesis. can tolerate regular diet continue zofran and reglan (3) UTI (urinary tract infection) Current Visit: Yes Status: Acute Assessment and plan: Urinalysis positive for leukocyte esterase, bacteria. Urine culture still pending. Patient on ceftriaxone. Patient has a [place] in for strict I's and O's and urinary retention. Qualifiers: Urinary tract infection type: acute cystitis Hematuria presence: without hematuria Qualified Code(s): N30.00 - Acute cystitis without hematuria (4) Anemia Current Visit: Yes Status: Chronic Assessment and plan: Patient presented with hemoglobin of 10.4 now 8.3 Patient will prefer colonoscopy tomorrow. Clear liquid diet. EGD was negative for acute upper GI bleed. EGD showed gastritis, and a mucosal nodule was found. Continue PPI twice a day and Carafate 3 times a day. Qualifiers: Anemia type: unspecified type Qualified Code(s): D64.9 - Anemia, unspecified (5) Uncontrolled diabetes mellitus Current Visit: Yes Status: Acute Assessment and plan: Patient's hemoglobin A1c is 11.4. Currently she is on insulin regiment that is controlling her hyperglycemia. Continue to monitor. Qualifiers: Diabetes mellitus type: type 2 Diabetes mellitus marine oil terminal superintendent insulin use: with marine oil terminal superintendent use Diabetes mellitus complication status: with kidney complications Diabetes mellitus complication detail: with chronic kidney disease Chronic kidney disease stage: stage 3 (moderate) Qualified Code(s): E11.22 - Type 2 diabetes mellitus with diabetic chronic kidney disease; E11.65 - Type 2 diabetes mellitus with hyperglycemia; Z79.4 - senior living (current) use of insulin; E11.65 - Type 2 diabetes mellitus with hyperglycemia; E11.65 - Type 2 diabetes mellitus with hyperglycemia; E11.65 - Type 2 diabetes mellitus with hyperglycemia; N18.3 - Chronic kidney disease, stage 3 (moderate); N18.3 - Chronic kidney disease, stage 3 (moderate); Z79.4 - senior living (current) use of insulin; Z79.4 - terminologist (current) use of insulin; Z79.4 - senior living (current ) use of insulin (6) CKD (chronic kidney disease) stage 3, GFR 30-59 ml/min Current Visit: Yes Status: Chronic Assessment and plan: Acute on chronic kidney injury. improving Likely secondary to dehydration from nausea vomiting. Continue IV fluids. Urine output 800 yesterday. Repeat BMP. (7) Coronary artery disease Current Visit: Yes Status: Chronic Assessment and plan: Stable. Continue home medications. Qualifiers: Coronary Disease-Associated Artery/Lesion type: [place] artery [place] vs. transplanted heart: [place] heart Associated angina: without angina Qualified Code(s): I25.10 - Atherosclerotic heart disease of [place] coronary artery without angina pectoris (8) DVT prophylaxis Current Visit: Yes Status: Acute Assessment and plan: Heparin subcutaneous. - Subjective Interval history: Patient is tolerating a regular diet. She reports her abdominal pain has improved. Reports nausea has resolved.. She denies headache, shortness of breath, chest pain. On clear liquid diet now and will prep today for colonoscopy tomorrow. - Constitutional Vitals: Temp Pulse Resp BP Pulse Ox 98.3 F 64 15 156/61 100 07/05/17 07:22 07/05/17 07:22 07/05/17 07:22 07/05/17 07:22 07/05/17 07:22 General appearance: Present: cooperative, A&O X 3, pleasant - Other Additional findings: General: without distress HEENT: Moist mucous membrane Heart: Regular rate and rhythm with no murmur Lungs: Clear to auscultation bilaterally Abdomen: Soft nontender, nondistended positive bowel sounds Skin: warm and dry Extremities: Absent pedal edema, Neuro: Alert and oriented 3 Vascular: Pedal and radial pulses 2 out of 4 Internal Medicine: Result - Labs CBC & Chem 7: 07/05/17 04:00 07/05/17 04:00 Labs: Short CBC 07/05/17 Range/Units 04:00 WBC 6.5 (4.3-11.1) K/mcL Hgb 8.3 L (11.5-15.4) g/dL Hct 26.4 L (35.3-44.9) % Plt Count 156 (140-400) K/mcL Neutrophils # 4.4 (1.6-8.9) K/mcL BMP 07/05/17 04:00 Sodium 139 Potassium 3.9 Chloride 109 H Carbon Dioxide 26 BUN 47 H Creatinine 2.55 H Glucose 138 H Calcium 7.6 L - ABG Interpretation ABG results: PT/INR, D-dimer PT 10.2 Seconds (9.4-12.1) 07/01/17 09:26 - Impressions Impressions Retroperitoneum Ultrasound 07/04/17 16:00 IMPRESSION: Unremarkable bilateral renal ultrasound. No significant interval change. Nonvisualization of the bladder due to lack of distention. D/ / Palomo Ren MD / Palomo Ren MD Interpreting Provider: Palomo Ren MD - VTE Documentation of Mechanical Device: Intermittent pneumatic compression device Consult Discharge Plan - Plan Referrals: Rose Esteban FIXTURE MAKER [Advanced Practice Nurse] - 07/13/17 1:30 pm <Suman Monroe - Last Filed: 07/05/17 18:34> Date of Encounter: 07/05/17 - Assessment and plan (1) Colitis Current Visit: Yes Status: Acute (2) Hyperglycemia due to type 2 diabetes mellitus Current Visit: Yes Status: Chronic Qualifiers: Diabetes mellitus custodial insulin use: with custodial use Qualified Code( s): E11.65 - Type 2 diabetes mellitus with hyperglycemia; Z79.4 - terminologist ( current) use of insulin; Z79.4 - terminologist (current) use of insulin; Z79.4 - terminologist (current) use of insulin; Z79.4 - terminologist (current) use of insulin (3) CKD (chronic kidney disease) stage 3, GFR 30-59 ml/min Current Visit: Yes Status: Chronic (4) Anemia Current Visit: Yes Status: Suspected Qualifiers: Other causes of anemia: acute posthemorrhagic Qualified Code(s): D62 - Acute posthemorrhagic anemia (5) Coronary artery disease Current Visit: Yes Status: Chronic Qualifiers: Coronary Disease-Associated Artery/Lesion type: [place] artery [place] vs. transplanted heart: [place] heart Associated angina: without angina Qualified Code(s): I25.10 - Atherosclerotic heart disease of [place] coronary artery without angina pectoris (6) UTI (urinary tract infection) Current Visit: Yes Status: Acute Qualifiers: Urinary tract infection type: acute cystitis Hematuria presence: without hematuria Qualified Code(s): N30.00 - Acute cystitis without hematuria - Constitutional Vitals: Temp Pulse Resp BP Pulse Ox 97.3 F L 75 16 149/70 98 07/05/17 16:27 07/05/17 16:27 07/05/17 16:27 07/05/17 16:27 07/05/17 16:27 Internal Medicine: Result - Labs CBC & Chem 7: 07/05/17 04:00 07/05/17 04:00 Labs: Short CBC 07/05/17 Range/Units 04:00 WBC 6.5 (4.3-11.1) K/mcL Hgb 8.3 L (11.5-15.4) g/dL Hct 26.4 L (35.3-44.9) % Plt Count 156 (140-400) K/mcL Neutrophils # 4.4 (1.6-8.9) K/mcL BMP 07/05/17 04:00 Sodium 139 Potassium 3.9 Chloride 109 H Carbon Dioxide 26 BUN 47 H Creatinine 2.55 H Glucose 138 H Calcium 7.6 L - ABG Interpretation ABG results: PT/INR, D-dimer PT 10.2 Seconds (9.4-12.1) 07/01/17 09:26 - Attending Attestation I examined this patient and my medical decision-making was reviewed with the Resident Physician on 07/05/17. I agree with the documented findings, disposition and treatment plan as described except to the extent set forth below. Ms Bond is currently admitted for acute colitis and uncontrolled DM. She remains moderate to high risk due to potential for worsening clinical status. Ms Bond is feeling OK at this time. She is to have colonoscopy tomorrow. No further bleeding noted. Blood sugars have increased now that she is eating. Nausea has improved with Reglan. Exam ALert. Comfortable Mucus membranes dry Heart reg No wheeze Abd soft I/P 1. Colitis. 2. DM Further diagnoses and plan as above.
[2017-07-05] MEDS: Ringers Solution, Lactated 1,000 ML IVC SCH (12:23)
[2017-07-05] MEDS ORDERED: SODIUM CHLORIDE/NAHCO3/KCL/PEG 4,000 ML SOLN.RECON PO ONE (17:00)
[2017-07-05] MEDS: Insulin DETEMIR 100 UNIT/ML X5UNITS SQ SCH (21:05)
[2017-07-06] MEDS: MetroNIDAZOLE 500 MG/100 ML 500 MG/100 ML BAG IVPB SCH ×3 (01:22→16:30)
[2017-07-06] MEDS: Ondansetron 4 MG/2 ML VIAL IVP PRN (01:47)
[2017-07-06] MEDS ORDERED: cefTRIAXone 1,000 MG in Water for inj. (sterile) 20 ML 10 ML IVPB SCH (03:30)
[2017-07-06] MEDS: Insulin LISPRO 300 UNITS/3 ML VIAL SQ SCH ×5 (03:39→20:21)
[2017-07-06 04:22] LABS: Basophils % 0.1 %; Eosinophils # 0.2 K/mcL (0.0-0.6); Eosinophils % 2.8 %; Hemoglobin 8.6 g/dL (11.5-15.4); Immature Granulocytes % 0.4 % (0-4); Lymphocytes # 1.3 K/mcL (0.6-4.6); Lymphocytes % 16.8 %; Mean Corpuscular HGB Conc 30.7 g/dL (31.6-35.5); Mean Corpuscular Hemoglobin 29.7 pg (28.0-33.3); Mean Corpuscular Volume 96.6 fL (83.0-100.0); Mean Platelet Volume 12.1 fL (9.4-12.4); Monocytes # 0.5 K/mcL (0.0-1.3); Monocytes % 6.3 %; Neutrophils # 5.5 K/mcL (1.6-8.9); Nucleated Red Blood Cells 0.3 /100 WBC (0); Platelet Count 176 K/mcL (140-400); Red Cell Distribution Width 13.1 % (11.5-14.5); Segmented Neutrophils % 73.6 %
[2017-07-06 04:38] LABS: Calcium 7.9 mg/dL (8.6-10.3); Potassium 3.9 mEq/L (3.5-5.1)
[2017-07-06] MEDS: Ringers Solution, Lactated 1,000 ML IVC SCH (04:48)
[2017-07-06] MEDS: Metoclopramide 10 MG/10 ML UD.LIQ PO SCH ×3 (05:13→16:29)
[2017-07-06] MEDS: Pregabalin 50 MG CAPSULE PO SCH ×2 (09:22→20:17)
[2017-07-06] MEDS: Isosorbide MONOnitrate (24 HR) 60 MG TAB.ER.24H PO SCH (09:22)
[2017-07-06] MEDS: Metoprolol XL (24 HR) Succ 50 MG TAB.ER.24H PO SCH (09:23)
--- NOTE | 2017-07-06 09:58 | Internal Med Progress Note ---
<Nicola Zhang - Last Filed: 07/06/17 09:55> Date of Encounter: 07/06/17 Time of Encounter: 09:56 - Assessment and plan (1) Colitis Current Visit: Yes Status: Acute Assessment and plan: CT abdomen pelvis shows mild wall thickening of the transverse colon, hepatic flexure and ascending colon. Continue IV fluids. Continue ceftriaxone day 6 and Flagyl day 6 (will complete 7 days total of antibiotics) abdominal pain resolved. (2) Nausea Current Visit: Yes Status: Resolved Assessment and plan: Improved. Likely secondary to his gastroparesis. can tolerate regular diet continue zofran and reglan (3) UTI (urinary tract infection) Current Visit: Yes Status: Acute Assessment and plan: Urinalysis positive for leukocyte esterase, bacteria. Urine culture still pending. Patient on ceftriaxone. Patient has a [place] in for strict I's and O's and urinary retention. Qualifiers: Urinary tract infection type: acute cystitis Hematuria presence: without hematuria Qualified Code(s): N30.00 - Acute cystitis without hematuria (4) Anemia Current Visit: Yes Status: Suspected Assessment and plan: Patient presented with hemoglobin of 10.4 now 8.7 colonoscopy today EGD was negative for acute upper GI bleed. EGD showed gastritis, and a mucosal nodule was found. Continue PPI twice a day and Carafate 3 times a day. Qualifiers: Other causes of anemia: acute posthemorrhagic Qualified Code(s): D62 - Acute posthemorrhagic anemia (5) Uncontrolled diabetes mellitus Current Visit: Yes Status: Acute Assessment and plan: Patient's hemoglobin A1c is 11.4. Currently she is on insulin regiment that is controlling her hyperglycemia. Continue to monitor. patient educated on importance of glycemic control. Qualifiers: Diabetes mellitus type: type 2 Diabetes mellitus laborer marine terminal insulin use: with [facility] use Diabetes mellitus complication status: with kidney complications Diabetes mellitus complication detail: with chronic kidney disease Chronic kidney disease stage: stage 3 (moderate) Qualified Code(s): E11.22 - Type 2 diabetes mellitus with diabetic chronic kidney disease; E11.65 - Type 2 diabetes mellitus with hyperglycemia; Z79.4 - prison (current) use of insulin; E11.65 - Type 2 diabetes mellitus with hyperglycemia; E11.65 - Type 2 diabetes mellitus with hyperglycemia; E11.65 - Type 2 diabetes mellitus with hyperglycemia; N18.3 - Chronic kidney disease, stage 3 (moderate); N18.3 - Chronic kidney disease, stage 3 (moderate); Z79.4 - long term care social worker (current) use of insulin; Z79.4 - long term care social worker (current) use of insulin; Z79.4 - long term care social worker (current ) use of insulin (6) CKD (chronic kidney disease) stage 3, GFR 30-59 ml/min Current Visit: Yes Status: Chronic Assessment and plan: Acute on chronic kidney injury. improving Likely secondary to dehydration from nausea vomiting. IVF d/c patient has good oral intake Urine output 1475 yesterday. Repeat BMP. (7) Coronary artery disease Current Visit: Yes Status: Chronic Assessment and plan: Stable. Continue home medications. Qualifiers: Coronary Disease-Associated Artery/Lesion type: [place] artery [place] vs. transplanted heart: [place] heart Associated angina: without angina Qualified Code(s): I25.10 - Atherosclerotic heart disease of [place] coronary artery without angina pectoris (8) DVT prophylaxis Current Visit: Yes Status: Acute Assessment and plan: Heparin subcutaneous. - Subjective Interval history: No acute events overnight. Patient is a plan colonoscopy today. Her hemoglobin has been stable. She denies any melena, hematochezia. Reports abdominal pain, nausea or vomiting resolved. - Constitutional Vitals: Temp Pulse Resp BP Pulse Ox 97.8 F 66 16 142/61 100 07/06/17 07:15 07/06/17 09:25 07/06/17 07:15 07/06/17 07:15 07/06/17 07:15 General appearance: Present: cooperative, A&O X 3, pleasant - Other Additional findings: General: Pleasant without distress Heart: Regular rate and rhythm with no murmur Lungs: Clear to auscultation bilaterally Abdomen: Soft nontender, nondistended positive bowel sounds Skin: warm and dry Extremities: Absent pedal edema, Neuro: Alert oriented 3 Vascular: Pedal and radial pulses 2 out of 4 Internal Medicine: Result - Labs CBC & Chem 7: 07/06/17 03:50 07/06/17 03:50 Labs: Short CBC 07/06/17 Range/Units 03:50 WBC 7.5 (4.3-11.1) K/mcL Hgb 8.6 L (11.5-15.4) g/dL Hct 28.0 L (35.3-44.9) % Plt Count 176 (140-400) K/mcL Neutrophils # 5.5 (1.6-8.9) K/mcL BMP 07/06/17 03:50 Sodium 139 Potassium 3.9 Chloride 110 H Carbon Dioxide 26 BUN 35 H Creatinine 2.21 H Glucose 90 Calcium 7.9 L - ABG Interpretation ABG results: PT/INR, D-dimer PT 10.2 Seconds (9.4-12.1) 07/01/17 09:26 - VTE Documentation of Mechanical Device: Intermittent pneumatic compression device Consult Discharge Plan - Plan Referrals: Rose Esteban CLUB DIRECTOR [Advanced Practice Nurse] - 07/13/17 1:30 pm <Suman Monroe - Last Filed: 07/06/17 18:20> Date of Encounter: 07/06/17 - Assessment and plan (1) Helicobacter pylori (H. pylori) infection Current Visit: Yes Status: Acute (2) Helicobacter pylori colitis Current Visit: Yes Status: Suspected (3) Hyperglycemia due to type 2 diabetes mellitus Current Visit: Yes Status: Chronic Qualifiers: Diabetes mellitus laborer marine terminal insulin use: with [facility] use Qualified Code( s): E11.65 - Type 2 diabetes mellitus with hyperglycemia; Z79.4 - long term care social worker ( current) use of insulin; Z79.4 - long term care social worker (current) use of insulin; Z79.4 - long term care social worker (current) use of insulin; Z79.4 - prison (current) use of insulin (4) CKD (chronic kidney disease) stage 3, GFR 30-59 ml/min Current Visit: Yes Status: Chronic (5) Anemia Current Visit: Yes Status: Suspected Qualifiers: Other causes of anemia: acute posthemorrhagic Qualified Code(s): D62 - Acute posthemorrhagic anemia (6) Coronary artery disease Current Visit: Yes Status: Chronic Qualifiers: Coronary Disease-Associated Artery/Lesion type: [place] artery [place] vs. transplanted heart: [place] heart Associated angina: without angina Qualified Code(s): I25.10 - Atherosclerotic heart disease of [place] coronary artery without angina pectoris (7) UTI (urinary tract infection) Current Visit: Yes Status: Acute Qualifiers: Urinary tract infection type: acute cystitis Hematuria presence: without hematuria Qualified Code(s): N30.00 - Acute cystitis without hematuria - Constitutional Vitals: Temp Pulse Resp BP Pulse Ox 98.0 F 77 16 114/46 95 07/06/17 15:35 07/06/17 15:35 07/06/17 15:35 07/06/17 15:35 07/06/17 15:35 Internal Medicine: Result - Labs CBC & Chem 7: 07/06/17 03:50 07/06/17 03:50 Labs: Short CBC 07/06/17 Range/Units 03:50 WBC 7.5 (4.3-11.1) K/mcL Hgb 8.6 L (11.5-15.4) g/dL Hct 28.0 L (35.3-44.9) % Plt Count 176 (140-400) K/mcL Neutrophils # 5.5 (1.6-8.9) K/mcL BMP 07/06/17 03:50 Sodium 139 Potassium 3.9 Chloride 110 H Carbon Dioxide 26 BUN 35 H Creatinine 2.21 H Glucose 90 Calcium 7.9 L - ABG Interpretation ABG results: PT/INR, D-dimer PT 10.2 Seconds (9.4-12.1) 07/01/17 09:26 - Attending Attestation I examined this patient and my medical decision-making was reviewed with the Resident Physician on 07/06/17. I agree with the documented findings, disposition and treatment plan as described except to the extent set forth below. Ms Bond is currently admitted for acute colitis and concern for GI bleed. She is to have colonscopy today. She remains moderate to high risk due to potential for worsening clinical status. Ms Bond is resting comfortably. She is to have colonoscopy today. No fever or chills. Still with some LLQ discomfort at time. No diarrhea today. Exam alert Comfortable Mucus membranes dry Heart distant Lungs clear Abd soft with minimal LLQ discomfort I/P 1. Colitis Further diagnoses and plan as above.
[2017-07-06] MEDS ORDERED: Lidocaine -MPF 2% 2 ML VIAL ONE (13:49)
[2017-07-06] MEDS ORDERED: Propofol 500 MG/50 ML INFUS..BTL ONE (13:49)
[2017-07-06] MEDS ORDERED: 0.9 % Sodium Chloride 500 ML IVC SCH (14:00)
[2017-07-06] MEDS ORDERED: EPHEDrine 50 MG/ML VIAL ONE (14:03)
--- NOTE | 2017-07-06 14:14 | Anesthesia Evaluation PreOp ---
Date of Encounter: 07/06/17 Time of Encounter: 14:10 - Past History Planned Operation: Colonoscopy Cardiac History: HTN, Hyperlipidemia Pulmonary History: Denies Any Significant HX CABLE SUPERVISOR History: Denies Any Significant HX Other Medical History: Renal (CKD), Diabetes Type II, GERD Anesthesia History: No Prior Anesthetic Complications Alcohol Use: none Drug use: none Medications and Allergies Insulin Glargine [Lantus] 20 unit SQ QPM 05/26/16 [History] Magnesium Oxide [Mag-Ox] 400 mg PO BID #6 tablet 01/16/17 [Rx] Isosorbide MONOnitrate (24 HR) [Imdur] 60 mg PO DAILY #30 tab.er.24h 03/15/17 [ Rx] Metoprolol Succinate 100 mg PO DAILY #30 tab.er.24h 04/15/17 [Rx] Metoclopramide [Reglan] 10 mg PO QIDAC #120 tablet 04/28/17 [Rx] Furosemide [Lasix] 40 mg PO DAILY 07/01/17 [History] Potassium Chloride [K-Tab ER] 20 meq PO DAILY 07/01/17 [History] Pravastatin Sodium [Pravachol] 20 mg PO HS 07/01/17 [History] Promethazine [Phenergan] 25 mg PO DAILY 07/01/17 [History] 3 Allergy/AdvReac Type Severity Reaction Status Date / Time Sulfa (Sulfonamide Allergy Hives Verified 07/01/17 09:54 Antibiotics) acetaminophen [From Tylenol] AdvReac Anaphylaxis Verified 07/01/17 09:54 gabapentin [From Neurontin] AdvReac Hallucinati Verified 07/01/17 09:54 ng hydrocodone AdvReac Hives Verified 07/01/17 09:54 ibuprofen AdvReac Hives Verified 07/01/17 09:54 - Meds/Allergy Pre-op Review Medications Reviewed: Yes Allergies Reviewed: Yes Beta Blockers on Current Med List: No Anesthesia Results - Labs 07/06/17 03:50 07/06/17 03:50 - Imaging EKG: report reviewed (SR) Additional studies: EF 65% Anesthesia Exam Vital Signs/O2 Sat/Glucose, Most Current Temp Pulse Resp BP Pulse Ox 07/06/17 14:04 103 18 158/77 100 07/06/17 12:29 103 07/06/17 11:42 98.5 F 102 159/90 99 Height: 5'1 Weight: 181 lbs NPO (# of Hours): MN Pain Scale: 0 - HEENT Pupil (Motor): Pupils equal, EOMI Mallampati: III Teeth: Edentulous Oral Opening: Less than or equal to 3 - CABLE SUPERVISOR LOC: Oriented CABLE SUPERVISOR Motor: Normal RUE, Normal LUE, Normal RLE, Normal LLE, Normal Face CABLE SUPERVISOR Sensory: Normal: RUE, LUE, RLE, LLE, Face - Cardiac Rhythm: Regular Murmur: None JVD: No Carotid Bruit: No - Pulmonary Breath Sounds: bilateral Clear Respiratory Effort: Symmetrical Anesthesia Assess/Plan ASA Score: 1 (HTN DM CKD), 3 (HTN CKD DM) Modified [place] Scale for Level of Consciousness: Cooperative, oriented, and tranquil Anesthetic Plan: MAC Monitoring Plan: Standard Monitors Recovery Plan: Other (Discussed MAC, agrees to proceed)
--- NOTE | 2017-07-06 15:55 | Event Note ---
Date of Encounter: 07/06/17 Time of Encounter: 15:50 EGD positive for H pylori, spoke with pharmacist, will start amoicillin and clarithromycin, stop rocephin and will have one more dose of flagyl. Pt needs to continue treatment for 2 weeks, PPI for 4 additional weeks, stop PPI for 2 weeks then retest in 8 weeks.
[2017-07-06] MEDS: Amoxicillin 500 MG CAPSULE PO SCH (20:17)
[2017-07-06] MEDS: Insulin DETEMIR 100 UNIT/ML X5UNITS SQ SCH (20:18)
[2017-07-07] MEDS: Insulin LISPRO 300 UNITS/3 ML VIAL SQ SCH ×6 (00:12→21:42)
[2017-07-07] MEDS: MetroNIDAZOLE 500 MG/100 ML 500 MG/100 ML BAG IVPB SCH (00:12)
[2017-07-07] MEDS: Metoclopramide 10 MG/10 ML UD.LIQ PO SCH ×5 (01:17→21:42)
[2017-07-07] MEDS: Ondansetron 4 MG/2 ML VIAL IVP PRN (01:52)
--- NOTE | 2017-07-07 07:56 | Discharge Summary ---
- NOTES TO OUTPATIENT PROVIDER Notes to Outpatient Provider: Patient admitted for nausea vomiting diarrhea and abdominal pain. She has of coffee-ground emesis as well. CT abdomen showed evidence of colitis and patient was put on IV antibiotics. Patient went EGD which showed esophagitis, gastritis, prepyloric inflammation. There are no signs of active bleeding. Colonoscopy was negative for active bleeding and 1 small polyp was found in the cecum. Gastric questions pathology showed positive H. pylori. Patient was started on clarithromycin and azithromycin, PPI twice a day. Patient also has uncontrolled diabetes and likely gastroparesis secondary to this. She was started on Reglan. Orders not resulted at time of discharge: Pending orders 07/01/17 10:52 Ova & Parasite Exam Routine 07/04/17 13:20 Culture,Urine [RM] Routine 07/06/17 15:09 Surgical Pathology [PTH] Routine 07/07/17 04:00 BMP [Basic Metabolic Panel] AM 0400 Date of Encounter: 07/07/17 Time of Encounter: 07:53 - Discharge Diagnosis (1) Colitis Priority: Primary Status: Acute (2) Nausea Priority: Secondary Status: Resolved (3) UTI (urinary tract infection) Priority: Secondary Status: Ruled-out Qualifiers: Urinary tract infection type: acute cystitis Hematuria presence: without hematuria Qualified Code(s): N30.00 - Acute cystitis without hematuria (4) Anemia Priority: Secondary Status: Acute Qualifiers: Other causes of anemia: acute posthemorrhagic Qualified Code(s): D62 - Acute posthemorrhagic anemia (5) Uncontrolled diabetes mellitus Priority: Secondary Status: Chronic Qualifiers: Diabetes mellitus type: type 2 Diabetes mellitus terminal gauger supervisor insulin use: with chcf use Diabetes mellitus complication status: with kidney complications Diabetes mellitus complication detail: with chronic kidney disease Chronic kidney disease stage: stage 3 (moderate) Qualified Code(s): E11.22 - Type 2 diabetes mellitus with diabetic chronic kidney disease; E11.65 - Type 2 diabetes mellitus with hyperglycemia; Z79.4 - care home (current) use of insulin; E11.65 - Type 2 diabetes mellitus with hyperglycemia; E11.65 - Type 2 diabetes mellitus with hyperglycemia; E11.65 - Type 2 diabetes mellitus with hyperglycemia; N18.3 - Chronic kidney disease, stage 3 (moderate); N18.3 - Chronic kidney disease, stage 3 (moderate); Z79.4 - terminal operations manager (current) use of insulin; Z79.4 - terminal operations manager (current) use of insulin; Z79.4 - terminal operations manager (current ) use of insulin (6) CKD (chronic kidney disease) stage 3, GFR 30-59 ml/min Priority: Secondary Status: Chronic (7) Coronary artery disease Priority: Secondary Status: Chronic Qualifiers: Coronary Disease-Associated Artery/Lesion type: [place] artery [place] vs. transplanted heart: [place] heart Associated angina: without angina Qualified Code(s): I25.10 - Atherosclerotic heart disease of [place] coronary artery without angina pectoris (8) DVT prophylaxis Priority: Secondary Status: Acute (9) Helicobacter pylori (H. pylori) infection Priority: Secondary Status: Acute Hospital course: Ms. Bond is a 67 year old female - Time Spent with Patient Total time spent providing and/or coordinating discharge services: - Discharge Medications Home Medications: Insulin Glargine [Lantus] 20 unit SQ QPM 05/26/16 [History] Magnesium Oxide [Mag-Ox] 400 mg PO BID #6 tablet 01/16/17 [Rx] Isosorbide MONOnitrate (24 HR) [Imdur] 60 mg PO DAILY #30 tab.er.24h 03/15/17 [ Rx] Metoprolol Succinate 100 mg PO DAILY #30 tab.er.24h 04/15/17 [Rx] Metoclopramide [Reglan] 10 mg PO QIDAC #120 tablet 04/28/17 [Rx] Furosemide [Lasix] 40 mg PO DAILY 07/01/17 [History] Potassium Chloride [K-Tab ER] 20 meq PO DAILY 07/01/17 [History] Pravastatin Sodium [Pravachol] 20 mg PO HS 07/01/17 [History] Promethazine [Phenergan] 25 mg PO DAILY 07/01/17 [History] Allergies/Adverse Reactions: 3 Allergy/AdvReac Type Severity Reaction Status Date / Time Sulfa (Sulfonamide Allergy Hives Verified 07/01/17 09:54 Antibiotics) acetaminophen [From Tylenol] AdvReac Anaphylaxis Verified 07/01/17 09:54 gabapentin [From Neurontin] AdvReac Hallucinati Verified 07/01/17 09:54 ng hydrocodone AdvReac Hives Verified 07/01/17 09:54 ibuprofen AdvReac Hives Verified 07/01/17 09:54 Date of admission: 07/02/17 22:25 Primary care physician: PCP NONE Consults: 07/01/17 03:31 Consult for Pharmacy Education [CONS] Routine Reason for Consult: DM Call Completed: No 07/01/17 03:43 Consult to Gastroenterology [CONS] Routine Consulting Provider: Gastroenterology Laina Reason for Consult: gastritis, GIB Call Completed: No 07/04/17 07:11 Consult to Invasive Line Access Team [CONS] Routine Reason for Consult: limited vasc access Line Type: EPIV 07/07/17 07:49 Consult to Whale Trainer [CONS] Routine Reason for SW Consult: finacial issues Discharging clinician: Nicola Zhang Anticipated date of discharge: 07/07/17 - Constitutional Vitals: Temp Pulse Resp BP Pulse Ox 98.6 F 71 16 128/67 94 07/07/17 06:46 07/07/17 06:46 07/07/17 06:46 07/07/17 06:46 07/07/17 06:46 General appearance: Present: cooperative, A&O X 3, pleasant - Discharge Instructions Follow Up With: Rose Esteban, MANAGER IMAGING [Advanced Practice Nurse] - 07/13/17 1:30 pm - VTE Documentation of Mechanical Device: Intermittent pneumatic compression device
--- NOTE | 2017-07-07 08:03 | Internal Med Progress Note ---
<Nicola Zhang - Last Filed: 07/07/17 08:01> Date of Encounter: 07/07/17 Time of Encounter: 08:01 - Assessment and plan (1) Colitis Current Visit: Yes Status: Resolved Assessment and plan: CT abdomen pelvis shows mild wall thickening of the transverse colon, hepatic flexure and ascending colon. completed antibiotic therapy of 7 days abdominal pain resolved. tolerating diet. (2) Helicobacter pylori (H. pylori) infection Current Visit: Yes Status: Acute Assessment and plan: Gastric brushings pathology positive for H. pylori. Patient will be an clarithromycin and azithromycin for 2 weeks. Patient will be on PPI twice a day for 2 weeks. Patient will follow up with GI outpatient for repeat endoscopy and testing. (3) UTI (urinary tract infection) Current Visit: Yes Status: Ruled-out Assessment and plan: Urinalysis positive for yeast Likely contamination. Patient asymptomatic. UTI ruled out. Qualifiers: Urinary tract infection type: acute cystitis Hematuria presence: without hematuria Qualified Code(s): N30.00 - Acute cystitis without hematuria (4) Anemia Current Visit: Yes Status: Acute Assessment and plan: Stable. Likely secondary to H. pylori gastritis. EGD was negative for acute upper GI bleed. EGD showed gastritis, and a mucosal nodule was found. Colonoscopy negative for active acute bleeding. One cecal nonbleeding polyp found and removed. Continue PPI twice a day and Carafate 3 times a day. Qualifiers: Other causes of anemia: acute posthemorrhagic Qualified Code(s): D62 - Acute posthemorrhagic anemia (5) Uncontrolled diabetes mellitus Current Visit: Yes Status: Chronic Assessment and plan: Patient's hemoglobin A1c is 11.4. Currently she is on insulin regiment that is controlling her hyperglycemia. Continue to monitor. patient educated on importance of glycemic control. Stable Qualifiers: Diabetes mellitus type: type 2 Diabetes mellitus fpc insulin use: with fpc use Diabetes mellitus complication status: with kidney complications Diabetes mellitus complication detail: with chronic kidney disease Chronic kidney disease stage: stage 3 (moderate) Qualified Code(s): E11.22 - Type 2 diabetes mellitus with diabetic chronic kidney disease; E11.65 - Type 2 diabetes mellitus with hyperglycemia; Z79.4 - penitentiary (current) use of insulin; E11.65 - Type 2 diabetes mellitus with hyperglycemia; E11.65 - Type 2 diabetes mellitus with hyperglycemia; E11.65 - Type 2 diabetes mellitus with hyperglycemia; N18.3 - Chronic kidney disease, stage 3 (moderate); N18.3 - Chronic kidney disease, stage 3 (moderate); Z79.4 - intermediate teacher (current) use of insulin; Z79.4 - penitentiary (current) use of insulin; Z79.4 - intermediate teacher (current ) use of insulin (6) CKD (chronic kidney disease) stage 3, GFR 30-59 ml/min Current Visit: Yes Status: Chronic Assessment and plan: Acute on chronic kidney injury. improving Likely secondary to dehydration from nausea vomiting. IVF d/c patient has good oral intake Urine output 1025 mL yesterday. (7) Coronary artery disease Current Visit: Yes Status: Chronic Assessment and plan: Stable. Continue home medications. Qualifiers: Coronary Disease-Associated Artery/Lesion type: [place] artery [place] vs. transplanted heart: [place] heart Associated angina: without angina Qualified Code(s): I25.10 - Atherosclerotic heart disease of [place] coronary artery without angina pectoris (8) DVT prophylaxis Current Visit: Yes Status: Acute Assessment and plan: Heparin subcutaneous. (9) Nausea Current Visit: Yes Status: Resolved Assessment and plan: resolved. (10) PRECIOUS (obstructive sleep apnea) Current Visit: Yes Status: Suspected Assessment and plan: Patient required 3 L oxygen overnight. BMI 35.0 Lungs clear to auscultation. Patient denies cough and sputum production. Patient has a history of smoking. Patient does not history of COPD. Suspecting obstructive sleep apnea as an them morning she does not require oxygen Will conduct overnight pulse ox study for further evaluation. Patient will likely need a outpatient formal sleep study. - Subjective Interval history: No acute events overnight. Gastric brushings pathology was positive for H. pylori. Patient started on clarithromycin and azithromycin. Patient required 3 L of oxygen overnight. She does not use oxygen at home. She reports nausea and abdominal pain is resolved. - Constitutional Vitals: Temp Pulse Resp BP Pulse Ox 98.6 F 71 16 128/67 94 07/07/17 06:46 07/07/17 06:46 07/07/17 06:46 07/07/17 06:46 07/07/17 06:46 General appearance: Present: cooperative, A&O X 3, pleasant - Other Additional findings: General: without distress Heart: Regular rate and rhythm with no murmur Lungs: Clear to auscultation bilaterally Abdomen: Soft nontender, nondistended positive bowel sounds Skin: warm and dry Extremities: Absent pedal edema, Neuro: Alert oriented 3 Vascular: Pedal and radial pulses 2 out of 4 Internal Medicine: Result - Labs CBC & Chem 7: 07/06/17 03:50 07/06/17 03:50 - ABG Interpretation ABG results: PT/INR, D-dimer PT 10.2 Seconds (9.4-12.1) 07/01/17 09:26 - VTE Documentation of Mechanical Device: Intermittent pneumatic compression device Consult Discharge Plan - Plan Referrals: Rose Esteban, RD MECHANICAL ENGINEER [Advanced Practice Nurse] - 07/13/17 1:30 pm <Suman Monroe - Last Filed: 07/07/17 16:30> Date of Encounter: 07/07/17 - Assessment and plan (1) Helicobacter pylori (H. pylori) infection Current Visit: Yes Status: Acute (2) Helicobacter pylori colitis Current Visit: Yes Status: Suspected (3) Hyperglycemia due to type 2 diabetes mellitus Current Visit: Yes Status: Chronic Qualifiers: Diabetes mellitus terminal gauger insulin use: with terminal gauger use Qualified Code( s): E11.65 - Type 2 diabetes mellitus with hyperglycemia; Z79.4 - penitentiary ( current) use of insulin; Z79.4 - intermediate teacher (current) use of insulin; Z79.4 - intermediate teacher (current) use of insulin; Z79.4 - penitentiary (current) use of insulin (4) CKD (chronic kidney disease) stage 3, GFR 30-59 ml/min Current Visit: Yes Status: Chronic (5) Anemia Current Visit: Yes Status: Acute Qualifiers: Anemia type: other cause Other causes of anemia: acute posthemorrhagic Qualified Code(s): D62 - Acute posthemorrhagic anemia (6) Coronary artery disease Current Visit: Yes Status: Chronic Qualifiers: Coronary Disease-Associated Artery/Lesion type: [place] artery [place] vs. transplanted heart: [place] heart Associated angina: without angina Qualified Code(s): I25.10 - Atherosclerotic heart disease of [place] coronary artery without angina pectoris (7) UTI (urinary tract infection) Current Visit: Yes Status: Ruled-out Qualifiers: Urinary tract infection type: acute cystitis Hematuria presence: without hematuria Qualified Code(s): N30.00 - Acute cystitis without hematuria - Constitutional Vitals: Temp Pulse Resp BP Pulse Ox 98.1 F 73 16 115/63 92 07/07/17 15:34 07/07/17 15:34 07/07/17 15:34 07/07/17 15:34 07/07/17 15:34 Internal Medicine: Result - Labs CBC & Chem 7: 07/06/17 03:50 07/07/17 15:11 Labs: BMP 07/07/17 15:11 Sodium 135 L Potassium 4.5 Chloride 111 H Carbon Dioxide 23 BUN 31 H Creatinine 2.11 H Glucose 175 H Calcium 7.8 L - ABG Interpretation ABG results: PT/INR, D-dimer PT 10.2 Seconds (9.4-12.1) 07/01/17 09:26 - Attending Attestation I examined this patient and my medical decision-making was reviewed with the Resident Physician on 07/07/17. I agree with the documented findings, disposition and treatment plan as described except to the extent set forth below. Ms Bond is currently admitted for acute colitis and H pylori infection. She is quite deconditioned. She remains moderate to high risk due to potential for worsening clinical status. Ms Bond is feeling very tired and weak. No abd pain today. No fever. No further diarrhea. No CP or SOB at this time. Exam alert Comfortable Mucus membranes dry Heart reg and not tachy Lungs diminished Abd soft with minimal LLQ discomfort I/P 1. Colitis - resolved 2. H pylori - on treatment 3. PT/OT evals. Further diagnoses and plan as above.
[2017-07-07] MEDS: Amoxicillin 500 MG CAPSULE PO SCH ×2 (11:09→21:42)
[2017-07-07] MEDS: Metoprolol XL (24 HR) Succ 50 MG TAB.ER.24H PO SCH (11:11)
[2017-07-07] MEDS: metroNIDAZOLE 500 MG TABLET PO SCH ×3 (11:11→21:42)
[2017-07-07] MEDS: Isosorbide MONOnitrate (24 HR) 60 MG TAB.ER.24H PO SCH (11:11)
[2017-07-07] MEDS: Pregabalin 50 MG CAPSULE PO SCH ×2 (11:11→21:42)
[2017-07-07] MEDS: Ringers Solution, Lactated 1,000 ML IVC SCH (15:07)
[2017-07-07 15:50] LABS: Calcium 7.8 mg/dL (8.6-10.3); Potassium 4.5 mEq/L (3.5-5.1)
[2017-07-07] MEDS: Insulin DETEMIR 100 UNIT/ML X5UNITS SQ SCH (21:42)
[2017-07-08] MEDS: Insulin LISPRO 300 UNITS/3 ML VIAL SQ SCH ×7 (01:06→23:50)
[2017-07-08] MEDS: *HR* Dextrose 50 % in Water (Syg) 50 ML SYRINGE IVP PRN (03:00)
--- NOTE | 2017-07-08 03:16 | Event Note ---
Date of Encounter: 07/08/17 Time of Encounter: 03:15 had chest pain - trend trop, EKG no new change has bitter taste in mouth - GERD ?? Later developed symptomatic hypoglycemia - improve with hypoglycemia protocol. Will discontinue evening long acting insulin and monitor closely
[2017-07-08] MEDS: Ondansetron 4 MG/2 ML VIAL IVP PRN (06:18)
[2017-07-08] MEDS: Metoclopramide 10 MG/10 ML UD.LIQ PO SCH ×4 (08:50→20:42)
[2017-07-08] MEDS: Pregabalin 50 MG CAPSULE PO SCH ×2 (08:51→20:42)
[2017-07-08] MEDS: Isosorbide MONOnitrate (24 HR) 60 MG TAB.ER.24H PO SCH (08:51)
[2017-07-08] MEDS: Metoprolol XL (24 HR) Succ 50 MG TAB.ER.24H PO SCH (08:51)
[2017-07-08] MEDS: Amoxicillin 500 MG CAPSULE PO SCH ×2 (08:51→20:42)
--- NOTE | 2017-07-08 13:46 | Internal Med Progress Note ---
<Nicola Zhang - Last Filed: 07/08/17 13:43> Date of Encounter: 07/08/17 Time of Encounter: 13:43 - Assessment and plan (1) Chest pain Current Visit: Yes Status: Suspected Assessment and plan: Overnight patient had chest pain. EKG was negative for ischemia. Troponins: 0.03, 0.04, 0.08. Echocardiogram on 03/13/2017 showed LVEF of 65% with moderate left ventricular diastolic dysfunction, and mild concentric left ventricular hypertrophy. continue aspirin, imdur metoprolol, and statins. cardiology consulted for recommendations. Qualifiers: Chest pain type: chest pain due to myocardial ischemia Ischemic chest pain type: unspecified angina pectoris type Qualified Code(s): I25.9 - Chronic ischemic heart disease, unspecified (2) Helicobacter pylori (H. pylori) infection Current Visit: Yes Status: Acute Assessment and plan: Gastric brushings pathology positive for H. pylori. Patient will be an clarithromycin and azithromycin for 2 weeks. Patient will be on PPI twice a day for 2 weeks. Patient will follow up with GI outpatient for repeat endoscopy and testing. Continue with antibiotics. (3) PRECIOUS (obstructive sleep apnea) Current Visit: Yes Status: Suspected Assessment and plan: Patient coffer for oxygen with overnight pulse ox study. Continue oxygen supplementation. BMI 35.0 Lungs clear to auscultation. Patient denies cough and sputum production. Patient has a history of smoking. Patient does not history of COPD. Suspecting obstructive sleep apnea as an them morning she does not require oxygen Patient will likely need a outpatient formal sleep study. (4) UTI (urinary tract infection) Current Visit: Yes Status: Ruled-out Assessment and plan: Urinalysis positive for yeast Likely contamination. Patient asymptomatic. resent urine culture. Qualifiers: Urinary tract infection type: acute cystitis Hematuria presence: without hematuria Qualified Code(s): N30.00 - Acute cystitis without hematuria (5) Uncontrolled diabetes mellitus Current Visit: Yes Status: Chronic Assessment and plan: Patient's hemoglobin A1c is 11.4. Currently she is on insulin regiment that is controlling her hyperglycemia. Patient is very sensitive to insulin. She was on Levemir 5 units at night. Since her stay she said to morning hypoglycemic episodes. Levemir has been discontinued. Continue sliding scale insulin. Plan will be to discharge patient on metformin and patient will follow-up with PCP for diabetes management. Qualifiers: Diabetes mellitus type: type 2 Diabetes mellitus intermediate designer insulin use: with senior care use Diabetes mellitus complication status: with kidney complications Diabetes mellitus complication detail: with chronic kidney disease Chronic kidney disease stage: stage 3 (moderate) Qualified Code(s): E11.22 - Type 2 diabetes mellitus with diabetic chronic kidney disease; E11.65 - Type 2 diabetes mellitus with hyperglycemia; Z79.4 - assistant terminal manager (current) use of insulin; E11.65 - Type 2 diabetes mellitus with hyperglycemia; E11.65 - Type 2 diabetes mellitus with hyperglycemia; E11.65 - Type 2 diabetes mellitus with hyperglycemia; N18.3 - Chronic kidney disease, stage 3 (moderate); N18.3 - Chronic kidney disease, stage 3 (moderate); Z79.4 - snf (current) use of insulin; Z79.4 - assistant terminal manager (current) use of insulin; Z79.4 - snf (current ) use of insulin (6) CKD (chronic kidney disease) stage 3, GFR 30-59 ml/min Current Visit: Yes Status: Chronic Assessment and plan: Acute on chronic kidney injury. improving Continue monitor. (7) Coronary artery disease Current Visit: Yes Status: Chronic Assessment and plan: Stable. Continue home medications. Qualifiers: Coronary Disease-Associated Artery/Lesion type: [place] artery [place] vs. transplanted heart: [place] heart Associated angina: without angina Qualified Code(s): I25.10 - Atherosclerotic heart disease of [place] coronary artery without angina pectoris (8) DVT prophylaxis Current Visit: Yes Status: Acute Assessment and plan: Heparin subcutaneous. (9) Nausea Current Visit: Yes Status: Acute Assessment and plan: Continue Zofran. (10) Colitis Current Visit: Yes Status: Resolved Assessment and plan: CT abdomen pelvis shows mild wall thickening of the transverse colon, hepatic flexure and ascending colon. completed antibiotic therapy of 7 days abdominal pain resolved. tolerating diet. (11) Anemia Current Visit: Yes Status: Acute Assessment and plan: Stable. Likely secondary to H. pylori gastritis. EGD was negative for acute upper GI bleed. EGD showed gastritis, and a mucosal nodule was found. Colonoscopy negative for active acute bleeding. One cecal nonbleeding polyp found and removed. Continue PPI twice a day and Carafate 3 times a day. Qualifiers: Anemia type: other cause Other causes of anemia: acute posthemorrhagic Qualified Code(s): D62 - Acute posthemorrhagic anemia - Subjective Interval history: Jackie Patient had episode of chest pain, hypoglycemia. Patient was given 1 amp of dextrose. She underwent EKG which showed sinus rhythm without ST-T wave changes. Patient's troponins were trended and were 0.0 degrees, 0.04 and 0.08. This morning patient reports nausea. She reports her chest pain is resolved. She denies shortness of breath, abdominal pain. Patient had overnight pulse ox study Qualified for oxygen. - Constitutional Vitals: Temp Pulse Resp BP Pulse Ox 98.3 F 73 16 147/69 99 07/08/17 07:22 07/08/17 11:34 07/08/17 11:34 07/08/17 11:34 07/08/17 11:34 General appearance: Present: cooperative, A&O X 3, pleasant - Other Additional findings: General: Mild distress Heart: Regular rate and rhythm with no murmur Lungs: Clear to auscultation bilaterally Abdomen: Soft nontender, nondistended positive bowel sounds Skin: warm and dry Extremities: Absent pedal edema, Neuro: Alert and oriented 3 Vascular: Pedal and radial pulses 2 out of 4 Internal Medicine: Result - Labs CBC & Chem 7: 07/06/17 03:50 07/07/17 15:11 Labs: BMP 07/07/17 15:11 Sodium 135 L Potassium 4.5 Chloride 111 H Carbon Dioxide 23 BUN 31 H Creatinine 2.11 H Glucose 175 H Calcium 7.8 L Cardiac Enzymes 07/08/17 07/08/17 07/08/17 Range/Units 00:25 06:15 12:15 Troponin I 0.03 0.04 H* 0.08 H* (< 0.04) ng/mL - ABG Interpretation ABG results: PT/INR, D-dimer PT 10.2 Seconds (9.4-12.1) 07/01/17 09:26 - VTE Documentation of Mechanical Device: Intermittent pneumatic compression device Consult Discharge Plan - Plan Referrals: Rose Esteban, ADULT SERVICES LIBRARIAN [Advanced Practice Nurse] - 07/13/17 1:30 pm <Suman Monroe - Last Filed: 07/08/17 17:45> Date of Encounter: 07/08/17 - Assessment and plan (1) Chest pain Current Visit: Yes Status: Suspected Qualifiers: Chest pain type: chest pain due to myocardial ischemia Ischemic chest pain type: unstable angina pectoris Qualified Code(s): I20.0 - Unstable angina (2) Helicobacter pylori (H. pylori) infection Current Visit: Yes Status: Acute (3) Helicobacter pylori colitis Current Visit: Yes Status: Suspected (4) Hyperglycemia due to type 2 diabetes mellitus Current Visit: Yes Status: Chronic Qualifiers: Diabetes mellitus senior care insulin use: with intermediate designer use Qualified Code( s): E11.65 - Type 2 diabetes mellitus with hyperglycemia; Z79.4 - assistant terminal manager ( current) use of insulin; Z79.4 - snf (current) use of insulin; Z79.4 - assistant terminal manager (current) use of insulin; Z79.4 - snf (current) use of insulin (5) CKD (chronic kidney disease) stage 3, GFR 30-59 ml/min Current Visit: Yes Status: Chronic (6) Anemia Current Visit: Yes Status: Acute Qualifiers: Anemia type: other cause Other causes of anemia: acute posthemorrhagic Qualified Code(s): D62 - Acute posthemorrhagic anemia (7) Coronary artery disease Current Visit: Yes Status: Chronic Qualifiers: Coronary Disease-Associated Artery/Lesion type: [place] artery [place] vs. transplanted heart: [place] heart Associated angina: without angina Qualified Code(s): I25.10 - Atherosclerotic heart disease of [place] coronary artery without angina pectoris (8) UTI (urinary tract infection) Current Visit: Yes Status: Ruled-out Qualifiers: Urinary tract infection type: acute cystitis Hematuria presence: without hematuria Qualified Code(s): N30.00 - Acute cystitis without hematuria - Constitutional Vitals: Temp Pulse Resp BP Pulse Ox 98.6 F 70 16 109/58 97 07/08/17 15:24 07/08/17 15:24 07/08/17 15:24 07/08/17 15:24 07/08/17 15:24 Internal Medicine: Result - Labs CBC & Chem 7: 07/06/17 03:50 07/07/17 15:11 Labs: Cardiac Enzymes 07/08/17 07/08/17 07/08/17 Range/Units 00:25 06:15 12:15 Troponin I 0.03 0.04 H* 0.08 H* (< 0.04) ng/mL 07/08/17 Range/Units 14:08 Troponin I 0.08 H* (< 0.04) ng/mL - ABG Interpretation ABG results: PT/INR, D-dimer PT 10.2 Seconds (9.4-12.1) 07/01/17 09:26 - Attending Attestation I examined this patient and my medical decision-making was reviewed with the Resident Physician on 07/08/17. I agree with the documented findings, disposition and treatment plan as described except to the extent set forth below. Ms Bond is currently admitted for colitis and H pylori. She developed chest pain last evening and troponins slightly elevated. She remains moderate to high risk due to potential for worsening clinical status. Ms Bond is having some GI distress most likely from clarithromycin. She had some chest discomfort last night. No fever or chills. No diarrhea. Exam alert Mild distress Mucus membranes dry Heart distant Lungs clear Abd soft I/P 1. Chest pain 2. H pylori Further diagnoses and plan as above.
[2017-07-08] MEDS: Aspirin 81 MG TAB.CHEW PO SCH (14:06)
--- NOTE | 2017-07-08 14:19 | Cardiology Consult Note ---
Date of Encounter: 07/08/17 Time of Encounter: 14:12 Assessment and Plan (1) Helicobacter pylori (H. pylori) infection Current Visit: Yes Status: Acute H.pylori positive after EGD with biopsy. -currently being treated with triple therapy: clarithromycin, azithromycin, PPI (2) Chest pain Current Visit: Yes Status: Suspected Chest pain lasting from late last night until 7:30am reported by patient. Pressure like, left arm numbness, diaphoretic. Nothing relieved or aggravated it. Troponin last night 0.03. EKG HR 74, NSR inverted T wave in lead 3, no ST changes. Currently chest pain free. troponin 0.03, 0.04, 0.08 (trending up) PMH: CAD 2 stents, CKD stage 3, HTN, DM Former smoker, no family cardiac hx per cardiology: -stress test ordered, hold Imdur, NPO midnight -trend troponins -Echo pending Qualifiers: Chest pain type: chest pain due to myocardial ischemia Ischemic chest pain type: unspecified angina pectoris type Qualified Code(s): I25.9 - Chronic ischemic heart disease, unspecified (3) Elevated troponin Current Visit: Yes Status: Acute troponin 0.03, 0.04, 0.08 (trending up) -trend troponins (4) Coronary artery disease Current Visit: Yes Status: Chronic 2004, 2005 [facility] with 2 stents currently taking toprol, imdur, lasix -patient is currently on low dose statin. She denies having myalgias with statin. We will stop pravastain and start atorvastatin 40 -will continue to monitor Qualifiers: Coronary Disease-Associated Artery/Lesion type: [place] artery [place] vs. transplanted heart: [place] heart Associated angina: without angina Qualified Code(s): I25.10 - Atherosclerotic heart disease of [place] coronary artery without angina pectoris (5) CKD (chronic kidney disease) stage 3, GFR 30-59 ml/min Current Visit: Yes Status: Chronic CKD stage 3 Cr 2.11 (2.77) improved -avoid nephrotoxic agents, monitor I/O, monitor renal fxn (6) Uncontrolled diabetes mellitus Current Visit: Yes Status: Chronic A1C 11.4 management per primary team Qualifiers: Diabetes mellitus type: type 2 Diabetes mellitus detention insulin use: with structural steel erection supervisor use Diabetes mellitus complication status: with kidney complications Diabetes mellitus complication detail: with chronic kidney disease Chronic kidney disease stage: stage 3 (moderate) Qualified Code(s): E11.22 - Type 2 diabetes mellitus with diabetic chronic kidney disease; E11.65 - Type 2 diabetes mellitus with hyperglycemia; E11.65 - Type 2 diabetes mellitus with hyperglycemia; E11.65 - Type 2 diabetes mellitus with hyperglycemia; E11.65 - Type 2 diabetes mellitus with hyperglycemia; N18.3 - Chronic kidney disease, stage 3 (moderate); N18.3 - Chronic kidney disease, stage 3 (moderate); Z79.4 - ramp and cargo supervisor (current) use of insulin; Z79.4 - senior living (current) use of insulin; Z79.4 - senior living (current) use of insulin; Z79.4 - senior living (current) use of insulin (7) Colitis Current Visit: Yes Status: Resolved Was treated with Abx and is currently resolved. Abd CT demonstrated colitis. Mild wall thickening of the transverse colon, hepatic flexure and ascending colon. Discussion w patient/family: The assessment and plan as outlined above was discussed with the patient and/or family members who expressed understanding and agreement. All questions were answered. Thank you for involving us in the care of your patient. Please call with any questions. History of Present Illness Consult date: 07/08/17 Requesting physician: Nicola Zhang Consult reason: elevated troponin, CP Chief complaint: abdominal pain History of present illness: Ms. Bond is a 67 year old female with PMH CAD- 2 stents, CKD stage 3, DM, HTN who presented to [facility] complaining of abdominal pain, nausea, and vomiting. She was found to have colitis on CT abdomen and H.pylori after EGD. She reported late last night she had retrosternal chest pain that was pressure like and lasted until about 7:30am. She stated her left arm went numb and she became diaphoretic. At that time her glucose was found to be 36. EKG demonstrated HR 74 NSR, inverted T wave in lead 3, no ST changes. Troponin initially 0.03. Upon my examination she is chest pain free. She stated when she had the [facility] with stents she had similar chest pain. 2004 & 2005 [facility] with 2 stents. 02/2017 Echo EF 65% moderate LV diastolic dysfunction, no PH. Past Med Surg Social Fam HX - Past Medical History Medical history: CHF, coronary artery disease, diabetes, GERD, hyperlipidemia, hypertension, renal disease Psychiatric history: no psych history - Past Surgical History Surgical History: angioplasty/stent, , hysterectomy - Social History Smoking Status: Former smoker Smokeless Tobacco Status: No Alcohol use: none Drug use: none - Family History Mother Family Member Ethnicity: Non- Living Status: Hx Family Cardiac Disorders: Yes Hx Family Respiratory Disorders: No Hx Family Cancer: No Hx Family GI Disorders: No Hx Family Endocrine Disorder: Yes (diabetes) Hx Family Neuromuscular Disorders: No Hx Family Neurologic Disorders: No Hx Family HEENT Disorders: No Hx Family Autoimmune Disorders: No Father Family Member Ethnicity: Non- Living Status: Hx Family Cardiac Disorders: Yes (chf) Hx Family Respiratory Disorders: No Hx Family Cancer: No Hx Family GI Disorders: No Hx Family Endocrine Disorder: No Hx Family Neuromuscular Disorders: No Hx Family Neurologic Disorders: No Hx Family HEENT Disorders: No Hx Family Autoimmune Disorders: No Medications and Allergies Insulin Glargine [Lantus] 20 unit SQ QPM 05/26/16 [History] Magnesium Oxide [Mag-Ox] 400 mg PO BID #6 tablet 01/16/17 [Rx] Isosorbide MONOnitrate (24 HR) [Imdur] 60 mg PO DAILY #30 tab.er.24h 03/15/17 [ Rx] Metoprolol Succinate 100 mg PO DAILY #30 tab.er.24h 04/15/17 [Rx] Metoclopramide [Reglan] 10 mg PO QIDAC #120 tablet 04/28/17 [Rx] Furosemide [Lasix] 40 mg PO DAILY 07/01/17 [History] Potassium Chloride [K-Tab ER] 20 meq PO DAILY 07/01/17 [History] Pravastatin Sodium [Pravachol] 20 mg PO HS 07/01/17 [History] Promethazine [Phenergan] 25 mg PO DAILY 07/01/17 [History] 3 Allergy/AdvReac Type Severity Reaction Status Date / Time Sulfa (Sulfonamide Allergy Hives Verified 07/01/17 09:54 Antibiotics) acetaminophen [From Tylenol] AdvReac Anaphylaxis Verified 07/01/17 09:54 gabapentin [From Neurontin] AdvReac Hallucinati Verified 07/01/17 09:54 ng hydrocodone AdvReac Hives Verified 07/01/17 09:54 ibuprofen AdvReac Hives Verified 07/01/17 09:54 All Systems Review: The remainder of the systems were reviewed and are negative - Constitutional Constitutional: chills, headache(s), no fever(s) - EENT Eyes: no blurred vision - Cardiovascular Cardiovascular: chest pain at rest, diaphoresis, no chest pain with exertion, no lightheadedness, no palpitations, no syncope - Respiratory Respiratory: no cough, no dyspnea - Gastrointestinal Gastrointestinal: abdominal pain, no nausea - Integumentary Integumentary: no erythema - Neurological Neurological: no abnormal speech, no loss of vision, no syncope Physical Examination Vital Signs, Last 4 Hours Temp Pulse Resp BP Pulse Ox 07/08/17 14:03 98.1 F 07/08/17 11:34 73 16 147/69 99 General: Conversant, No Apparent Distress HEENT: Mucus Membranes Moist Neck: No JVD Cardiac: Reg Rate and Rhythm, Normal S1 and S2 Lungs: Normal Breath Sounds, No Wheeze, Rales, Rhonchi (only positive was velcro like sound at b/l lower lobes) Neuro: Alert and responsive Abdomen: Soft, Non-Tender Skin: No rashes noted on visualized skin Musculoskeletal: No Chest Wall Tenderness Extremities: No Edema Results 07/06/17 03:50 07/07/17 15:11 Lab Results 07/07/17 07/08/17 07/08/17 15:11 00:25 06:15 Sodium 135 L Potassium 4.5 Chloride 111 H Carbon Dioxide 23 BUN 31 H Creatinine 2.11 H Glucose 175 H Calcium 7.8 L Troponin I 0.03 0.04 H* 07/08/17 12:15 Sodium Potassium Chloride Carbon Dioxide BUN Creatinine Glucose Calcium Troponin I 0.08 H* Consult Discharge Plan - Plan Referrals: Rose Esteban CAREER COORDINATOR [Advanced Practice Nurse] - 07/13/17 1:30 pm
--- NOTE | 2017-07-08 15:28 | Electrocardiograph Report ---
[place] [id number] Test Date: 2017-07-08 Pat Name: Phylicia Bond Department: 112 Room: 2A Gender: F Equipment Tech: ANGELITO : 1950 Requested By: Brenda Baig Order Number: [id number] Reading MD: Siddhartha Tavarez DO Measurements Intervals [place] Rate: 74 P: 75 CO: 168 QRS: 57 QRSD: 90 T: -3 QT: 380 QTc: 408 Interpretive Statements SINUS RHYTHM LOW QRS VOLTAGE POSSIBLE ANTERIOR MYOCARDIAL INFARCTION, PROBABLY OLD Electronically Signed On 07-08-2017 15:26:50 EDT by Siddhartha Tavarez DO
[2017-07-09] MEDS: Insulin LISPRO 300 UNITS/3 ML VIAL SQ SCH ×5 (04:07→20:48)
[2017-07-09 04:40] LABS: Hematocrit 25.2 % (35.3-44.9); Hemoglobin 7.5 g/dL (11.5-15.4); Mean Corpuscular HGB Conc 29.8 g/dL (31.6-35.5); Mean Corpuscular Hemoglobin 29.5 pg (28.0-33.3); Mean Corpuscular Volume 99.2 fL (83.0-100.0); Mean Platelet Volume 11.9 fL (9.4-12.4); Platelet Count 167 K/mcL (140-400); Red Blood Count 2.54 M/mcL (3.82-4.97); Red Cell Distribution Width 13.8 % (11.5-14.5)
[2017-07-09 04:44] LABS: Prothrombin Time 11.2 Seconds (9.4-12.1)
[2017-07-09 04:57] LABS: Calcium 7.9 mg/dL (8.6-10.3); Potassium 5.1 mEq/L (3.5-5.1)
[2017-07-09] MEDS ORDERED: Regadenoson 0.4 MG/5 ML SYRINGE IVP ONE (07:05)
[2017-07-09] MEDS: Metoclopramide 10 MG/10 ML UD.LIQ PO SCH ×3 (07:54→17:20)
[2017-07-09] MEDS ORDERED: Furosemide 20 MG/2 ML VIAL IVP ONE ×2 (09:37→17:59)
--- NOTE | 2017-07-09 09:39 | Internal Med Progress Note ---
Date of Encounter: 07/09/17 Time of Encounter: 09:15 - Assessment and plan (1) Anemia Current Visit: Yes Status: Acute Qualifiers: Anemia type: other cause Other causes of anemia: chronic disease, other Qualified Code(s): D63.8 - Anemia in other chronic diseases classified elsewhere (2) Chest pain Current Visit: Yes Status: Resolved Qualifiers: Chest pain type: chest pain due to myocardial ischemia Ischemic chest pain type: unstable angina pectoris Qualified Code(s): I20.0 - Unstable angina (3) Helicobacter pylori (H. pylori) infection Current Visit: Yes Status: Acute (4) Helicobacter pylori colitis Current Visit: Yes Status: Suspected (5) Hyperglycemia due to type 2 diabetes mellitus Current Visit: Yes Status: Chronic Qualifiers: Diabetes mellitus halfway insulin use: with halfway use Qualified Code( s): E11.65 - Type 2 diabetes mellitus with hyperglycemia; Z79.4 - ferry terminal agent ( current) use of insulin; Z79.4 - ferry terminal agent (current) use of insulin; Z79.4 - alf (current) use of insulin; Z79.4 - ferry terminal agent (current) use of insulin (6) CKD (chronic kidney disease) stage 3, GFR 30-59 ml/min Current Visit: Yes Status: Chronic (7) Coronary artery disease Current Visit: Yes Status: Chronic Qualifiers: Coronary Disease-Associated Artery/Lesion type: [place] artery [place] vs. transplanted heart: [place] heart Associated angina: without angina Qualified Code(s): I25.10 - Atherosclerotic heart disease of [place] coronary artery without angina pectoris - Subjective Interval history: Ms Bond is currently admitted for acute colitis. She is to have stress test today and is more anemic. She remains moderate to high risk due to potential for worsening clinical status. Ms Bond says her stomach feels better today. She is more anemic and she says this is a chronic issue. No fever or chills. No further chest pain. Tolerating the meds better now. - Constitutional Vitals: Temp Pulse Resp BP Pulse Ox 98.2 F 77 16 152/72 98 07/09/17 08:38 07/09/17 08:38 07/09/17 08:38 07/09/17 08:38 07/09/17 08:38 General appearance: Present: cooperative, A&O X 3, pleasant - Head Head exam: Present: normocephalic - Eye Eye exam: Present: conjuntiva pink - ENT ENT exam: Present: mucous membranes dry - Respiratory Respiratory exam: Present: decreased breath sounds, CTAB. Absent: rales, rhonchi, wheezes - Cardiovascular Cardiovascular exam: Present: distant heart sounds, RRR. Absent: tachycardia - GI/Abdominal GI/Abdominal exam: Present: soft. Absent: tenderness - Extremities Exam Extremities exam: Present: warm. Absent: tenderness - Neurological Exam Neurological exam: Present: alert, oriented X3 Additional comments: Very [place] without hearing aid Internal Medicine: Result - Labs CBC & Chem 7: 07/09/17 04:00 07/09/17 04:00 Labs: Short CBC 07/09/17 Range/Units 04:00 WBC 5.5 (4.3-11.1) K/mcL Hgb 7.5 L (11.5-15.4) g/dL Hct 25.2 L (35.3-44.9) % Plt Count 167 (140-400) K/mcL BMP 07/09/17 04:00 Sodium 136 Potassium 5.1 Chloride 109 H Carbon Dioxide 26 BUN 37 H Creatinine 2.40 H Glucose 128 H Calcium 7.9 L Cardiac Enzymes 07/08/17 07/08/17 07/08/17 Range/Units 12:15 14:08 20:45 Troponin I 0.08 H* 0.08 H* 0.10 H* (< 0.04) ng/mL 07/09/17 Range/Units 02:45 Troponin I 0.10 H* (< 0.04) ng/mL - ABG Interpretation ABG results: PT/INR, D-dimer PT 11.2 Seconds (9.4-12.1) 07/09/17 04:00 - VTE Documentation of Mechanical Device: Intermittent pneumatic compression device Consult Discharge Plan - Plan Referrals: Rose Esteban PLANNER/SCHEDULER [Advanced Practice Nurse] - 07/13/17 1:30 pm
[2017-07-09] MEDS ORDERED: 0.9 % Sodium Chloride 1,000 ML IVC SCH (09:45)
[2017-07-09] MEDS ORDERED: 0.9 % Sodium Chloride 250 ML IVC SCH (09:45)
--- NOTE | 2017-07-09 13:38 | Event Note ---
Date of Encounter: 07/09/17 Time of Encounter: 13:36 - Cardiology Event Note Patient seen during stress test. Denies recurrence of chest pain. Troponins 0.03 , 0.04, 0.08, 0.08, 0.1, 0.1, in the setting of colitis, anemia, CKD. Preliminary report of no-excercise nuclear stress test with no evidence of ischemia. Per discussion with , cardiology will sign off and will follow in outpatient setting. Follow up set.
[2017-07-09] MEDS: Amoxicillin 500 MG CAPSULE PO SCH ×2 (14:37→20:45)
[2017-07-09] MEDS: Pregabalin 50 MG CAPSULE PO SCH ×2 (14:38→20:45)
[2017-07-09] MEDS: Metoprolol XL (24 HR) Succ 50 MG TAB.ER.24H PO SCH (16:44)
[2017-07-09] MEDS: Aspirin 81 MG TAB.CHEW PO SCH (16:44)
[2017-07-10] MEDS: Metoclopramide 10 MG/10 ML UD.LIQ PO SCH ×5 (00:09→20:46)
[2017-07-10] MEDS: Insulin LISPRO 300 UNITS/3 ML VIAL SQ SCH ×6 (00:10→20:54)
[2017-07-10] MEDS: Aspirin 81 MG TAB.CHEW PO SCH (08:04)
[2017-07-10] MEDS: Amoxicillin 500 MG CAPSULE PO SCH ×2 (08:04→20:46)
[2017-07-10] MEDS: Pregabalin 50 MG CAPSULE PO SCH ×2 (08:05→20:46)
[2017-07-10] MEDS: Metoprolol XL (24 HR) Succ 50 MG TAB.ER.24H PO SCH (08:05)
[2017-07-10] MEDS: Isosorbide MONOnitrate (24 HR) 60 MG TAB.ER.24H PO SCH (08:05)
[2017-07-10 11:29] LABS: Hematocrit 32.8 % (35.3-44.9); Mean Corpuscular HGB Conc 30.5 g/dL (31.6-35.5); Mean Corpuscular Hemoglobin 29.4 pg (28.0-33.3); Mean Corpuscular Volume 96.5 fL (83.0-100.0); Mean Platelet Volume 12.3 fL (9.4-12.4); Platelet Count 173 K/mcL (140-400); Red Cell Distribution Width 15.7 % (11.5-14.5)
[2017-07-10 11:41] LABS: Calcium 8.1 mg/dL (8.6-10.3); Potassium 5.7 mEq/L (3.5-5.1)
--- NOTE | 2017-07-10 12:46 | Internal Med Progress Note ---
Date of Encounter: 07/10/17 Time of Encounter: 09:10 - Assessment and plan (1) CHF (congestive heart failure) Current Visit: Yes Status: Acute Assessment and plan: Appears to have a component of volume overload from blood transfusion yesterday. Diurese more today. Will help potassium as well. Qualifiers: Heart failure type: systolic Heart failure chronicity: acute on chronic Qualified Code(s): I50.23 - Acute on chronic systolic (congestive) heart failure (2) Anemia Current Visit: Yes Status: Acute Assessment and plan: Hemoglobin has improved with transfusion yesterday. Will recheck tomorrow. Qualifiers: Anemia type: other cause Other causes of anemia: chronic disease, other Qualified Code(s): D63.8 - Anemia in other chronic diseases classified elsewhere (3) Chest pain Current Visit: Yes Status: Resolved Assessment and plan: Stress test negative yesterday. Most likely GI related. Qualifiers: Chest pain type: chest pain due to myocardial ischemia Ischemic chest pain type: unstable angina pectoris Qualified Code(s): I20.0 - Unstable angina (4) Helicobacter pylori (H. pylori) infection Current Visit: Yes Status: Acute Assessment and plan: Continue current treatment plan. (5) Helicobacter pylori colitis Current Visit: Yes Status: Suspected Assessment and plan: On triple therapy for treatment of H pylori. (6) Hyperglycemia due to type 2 diabetes mellitus Current Visit: Yes Status: Chronic Assessment and plan: Monitoring blood sugars and treating as needed. Qualifiers: Diabetes mellitus intermediate frame tender insulin use: with intermediate frame tender use Qualified Code( s): E11.65 - Type 2 diabetes mellitus with hyperglycemia; Z79.4 - care home ( current) use of insulin; Z79.4 - care home (current) use of insulin; Z79.4 - terminal supervisor (current) use of insulin; Z79.4 - terminal supervisor (current) use of insulin (7) CKD (chronic kidney disease) stage 3, GFR 30-59 ml/min Current Visit: Yes Status: Chronic Assessment and plan: Creatinine slightly higher today. Recheck tomorrow and potassium as well. (8) Coronary artery disease Current Visit: Yes Status: Chronic Assessment and plan: Chronic issue Qualifiers: Coronary Disease-Associated Artery/Lesion type: [place] artery [place] vs. transplanted heart: [place] heart Associated angina: without angina Qualified Code(s): I25.10 - Atherosclerotic heart disease of [place] coronary artery without angina pectoris - Subjective Interval history: Ms Bond is currently admitted for acute colitis and H pylori infection. She stated she had a restless night. She remains moderate to high risk due to potential for worsening clinical status. Ms Bond has no complaints at this time. No fever or chills. Had a " restless night." No further pain. Stress test was negative. Feels a little more dyspneic overall today. No further diarrhea. - Constitutional Vitals: Temp Pulse Resp BP Pulse Ox 97.8 F 78 18 142/72 94 07/10/17 11:51 07/10/17 11:51 07/10/17 11:51 07/10/17 11:51 07/10/17 11:51 General appearance: Present: cooperative, A&O X 3, pleasant - Head Head exam: Present: normocephalic - Eye Eye exam: Present: conjuntiva pink - ENT ENT exam: Present: mucous membranes dry - Respiratory Respiratory exam: Present: decreased breath sounds. Absent: rhonchi, wheezes Additional comments: Scant bibasilar rales. - Cardiovascular Cardiovascular exam: Present: RRR. Absent: tachycardia - GI/Abdominal GI/Abdominal exam: Present: normal bowel sounds, soft. Absent: mass, tenderness - Extremities Exam Extremities exam: Present: warm. Absent: tenderness - Neurological Exam Neurological exam: Present: alert, oriented X3 - Skin Skin exam: Present: dry, warm Internal Medicine: Result - Labs CBC & Chem 7: 07/10/17 09:52 07/10/17 09:52 Labs: Short CBC 07/10/17 Range/Units 09:52 WBC 7.9 (4.3-11.1) K/mcL Hgb 10.0 L D (11.5-15.4) g/dL Hct 32.8 L (35.3-44.9) % Plt Count 173 (140-400) K/mcL BMP 07/10/17 09:52 Sodium 136 Potassium 5.7 H Chloride 110 H Carbon Dioxide 24 BUN 37 H Creatinine 2.79 H Glucose 226 H Calcium 8.1 L - ABG Interpretation ABG results: PT/INR, D-dimer PT 11.2 Seconds (9.4-12.1) 07/09/17 04:00 - VTE Documentation of Mechanical Device: Intermittent pneumatic compression device Consult Discharge Plan - Plan Referrals: Rose Esteban, DECORATING CONSULTANT [Advanced Practice Nurse] - 07/13/17 1:30 pm
[2017-07-10] MEDS ORDERED: Furosemide 20 MG/2 ML VIAL IVP ONE (13:09)
[2017-07-10] MEDS ORDERED: NON-FORMULARY MEDICATION 1 EACH EACH (Insulin Glargine [Lantus] 20 UNIT) SQ SCH (18:00)
[2017-07-10] MEDS ORDERED: Insulin DETEMIR 100 UNIT/ML X5UNITS SQ SCH (21:00)
[2017-07-10] MEDS ORDERED: Magnesium Oxide 400 MG TABLET PO SCH (21:00)
[2017-07-11 00:41] VITALS: BP 175/67
[2017-07-11] MEDS: Insulin LISPRO 300 UNITS/3 ML VIAL SQ SCH (00:42)
[2017-07-11] MEDS ORDERED: clonazePAM 0.5 MG TABLET PO ONE (02:19)
[2017-07-11 04:38] LABS: Hematocrit 35.8 % (35.3-44.9); Hemoglobin 10.8 g/dL (11.5-15.4); Mean Corpuscular HGB Conc 30.2 g/dL (31.6-35.5); Mean Corpuscular Hemoglobin 29.8 pg (28.0-33.3); Mean Corpuscular Volume 98.9 fL (83.0-100.0); Mean Platelet Volume 12.6 fL (9.4-12.4); Platelet Count 127 K/mcL (140-400); Red Blood Count 3.62 M/mcL (3.82-4.97); Red Cell Distribution Width 15.1 % (11.5-14.5)
[2017-07-11] MEDS ORDERED: *HR* EPINEPHrine 1 MG/10 ML SYRINGE IVP ONE ×2 (04:43)
[2017-07-11 04:55] LABS: INR 1.1; Prothrombin Time 11.7 Seconds (9.4-12.1)
[2017-07-11 04:58] LABS: Albumin 2.1 g/dL (3.5-5.7); Albumin/Globulin Ratio 0.9 (1.1-2.2); Bilirubin,Total 0.2 mg/dL (0.3-1.0); Calcium 11.8 mg/dL (8.6-10.3); Globulin 2.4 g/dL (2.4-3.5); Magnesium 1.8 mg/dL (1.6-2.6); Total Protein 4.5 g/dL (6.4-8.9)
--- NOTE | 2017-07-11 05:05 | Event Note ---
Date of Encounter: 07/11/17 Time of Encounter: 05:02 Cross cover responding to code Code called 0417 after initial evaluation by international first officer. Found PEA arrrest. Start compression, Epi bolus. Remains in PEA during entire code. Unable to get pulse back despite prolonged resuscitation. Time of called 0444. Code : PEA arrest Time of : 443 Cause of : Unclear but chart review noted clinical CHF exacerbation, CKD, Obesity, DMII as medical co-morbidities
[2017-07-11 05:06] LABS: Nucleated Red Blood Cells 1.2 /100 WBC (0)
[2017-07-11 05:08] LABS: Troponin I 0.04 ng/mL (< 0.04)
--- NOTE | 2017-07-11 05:08 | Death Note ---
Pronouncement Note - Date and Time of Date of : 07/11/17 Time of : 04:17 - Summary Additional details: Code called 0417 after initial evaluation by florist designer. Found PEA arrrest. Start compression, Epi bolus. Remains in PEA during entire code. Unable to get pulse back despite prolonged resuscitation. Time of called 0444. Code : PEA arrest Time of : 443 Cause of : Unclear but chart review noted clinical CHF exacerbation, CKD, Obesity, DMII as medical co-morbidities - Additional Data Confirmation of : no pulse, no respirations, no heart sounds, pupils fixed and dilated Family: attempt made Attending physician: Suman Monroe, DO
[2017-07-11 05:52] LABS: Eosinophils # 0.3 K/mcL (0.0-0.6); Lymphocytes # 7.2 K/mcL (0.6-4.6); Monocytes # 0.9 K/mcL (0.0-1.3); Neutrophils # 5.4 K/mcL (1.6-8.9)
[2017-07-11 05:53] LABS: Platelet Estimate Decreased (Normal)
[2017-07-11] MEDS ORDERED: Furosemide 40 MG TABLET PO SCH (09:00)
== END 2017-07-11 04:44 | disposition expired | DRG 371 ==
LOC: ICNU → SUATTDRO 02:22 → 2NNU 21:32 → SUATTDRO 07-02 22:25 → 2ANU 07-07 00:01
PROVIDERS: ADMIT Hospitalist; ATTEND Internal Medicine
PROC: ENDOEBX (2017-07-01 14:00)